=== PATIENT | male | born 1980 | race Caucasian/White ===

== ENCOUNTER 2019-12-08 17:28 | Inpatient (IN) | payer OTHER ==
[2019-12-08 19:22] VITALS: BMI 23.5
--- NOTE | 2019-12-08 20:02 | HP ---
CIWA Score Nausea/Vomitin-Mild Nausea/No Vomiting Muscle Tremors: 4-Moderate,w/Arms Extend Anxiety: 2 Agitation: 3 Paroxysmal Sweats: 2 Orientation: 0-Oriented Tacttile Disturbances: 0-None Auditory Disturbances: 0-None Visual Disturbances: 0-None Headache: 0-None Present CIWA-Ar Total Score: 12 - Admission Criteria OASAS Guidelines: Admission for Medically Managed Detox: Requires at least one of the followin. CIWA greater than 12 2. Seizures within the past 24 hours 3. Delirium tremens within the past 24 hours 4. Hallucinations within the past 24 hours 5. Acute intervention needed for co occurring medical disorder 6. Acute intervention needed for co occurring psychiatric disorder 7. Severe withdrawal that cannot be handled at a lower level of care (continued vomiting, continued diarrhea, abnormal vital signs) requiring intravenous medication and/or fluids 8. Admission [facility] Chief Complaint: Seeking admission to detox from alcohol Allergies/Adverse Reactions: Allergies Allergy/AdvReac Type Severity Reaction Status Date / Time No Known Allergies Allergy Verified 12/08/19 19:59 History of Present Illness: 39 years old male with a long history of alcohol dependence is seeking admission to detox. This is his first admission to [facility] and he reports that his last detox was at [facility]. Patient reports that he drinks 3 pints of Vodka daily. He denies medical history, reports psych. history of anxiety and denies suicidal ideation at this time. He is unemployed, lives with his father and denies legal issues. 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 Patient reports that he is on Methadone 20mg tablet oral daily with [facility]. Dose is yet to be verified by the nurse. Confidential Drug Utilization Report Search Terms: sarah purcell, 1980Search Date: 12/08/2019 19:55:45 PM The Drug Utilization Report below displays all of the controlled substance prescriptions, if any, that your patient has filled in the last twelve months. The information displayed on this report is compiled from pharmacy submissions to the Department, and accurately reflects the information as submitted by the pharmacies. Others' Prescriptions Patient Name: Basim PurcellBirth Date: 1980 Address: [place], [place] [address]Saj: Male Rx Written Rx Dispensed Drug Quantity Days Supply Prescriber Name Payment Method Dispenser 12/04/2019 12/04/2019 zolpidem tartrate 10 mg tablet 30 30 Alirio Hdez MD [facility] 12/04/2019 12/04/2019 clonazepam 2 mg tablet 90 30 Alirio Hdez MD [facility] 10/31/2019 11/01/2019 clonazepam 2 mg tablet 90 30 Alirio Hdez MD [facility] 10/31/2019 11/01/2019 zolpidem tartrate 10 mg tablet 30 30 Alirio Hdez MD [facility] 10/03/2019 10/06/2019 zolpidem tartrate 10 mg tablet 30 30 Alirio Hdez MD [facility] 10/03/2019 10/06/2019 clonazepam 2 mg tablet 90 30 Alirio Hdez MD [facility] 07/07/2019 07/11/2019 clonazepam 2 mg tablet 90 30 Alirio Hdez MD [facility] 05/12/2019 05/12/2019 clonazepam 2 mg tablet 90 30 Alirio Hdez MD [facility] 03/10/2019 03/10/2019 clonazepam 1 mg tablet 90 30 Alirio Hdez MD [facility] 02/19/2019 02/19/2019 clonazepam 1 mg tablet 46 15 Alirio Hdez MD [facility] Exam Limitations: No Limitations - Ebola screening Have you traveled outside of the country in the last 21 days: No Have you had contact with anyone from an Ebola affected area: No Have you been sick,other than usual withdrawal symptoms: No Do you have a fever: No - Review of Systems Constitutional: Chills, Loss of Appetite, Malaise, Night Sweats, Changes in sleep EENT: reports: No Symptoms Reported Respiratory: reports: No Symptoms reported Cardiac: reports: No Symptoms Reported GI: reports: No Symptoms Reported : reports: No Symptoms Reported Musculoskeletal: reports: Back Pain, Muscle Pain Integumentary: reports: Dryness, Flushing Neuro: reports: Tremors Endocrine: reports: No Symptoms Reported Hematology: reports: No Symptoms Reported Psychiatric: reports: Mood/Affect Appropiate, Orientated x3, Anxious Other Systems: Reviewed and Negative Patient History - Patient Medical History Hx Anemia: No Hx Asthma: No Hx Chronic Obstructive Pulmonary Disease (COPD): No Hx Cancer: No Hx Cardiac Disorders: No Hx Congestive Heart Failure: No Hx Hypertension: No Hx Hypercholesterolemia: No HX Cerebrovascular Accident: No Hx Seizures: No Hx Dementia: No Hx Diabetes: No Hx Gastrointestinal Disorders: No Hx Liver Disease: No Hx Genitourinary Disorders: No Hx Sexually Transmitted Disorders: No Hx Renal Disease (ESRD): No Hx Thyroid Disease: No Hx Human Immunodeficiency Virus (HIV): No (Negative 2019) Hx Hepatitis C: No Hx Depression: No Hx Suicide Attempt: No (Denies suicidal ideation at this time) Hx Bipolar Disorder: No Hx Schizophrenia: No Other Medical History: Anxiety - Patient Surgical History Past Surgical History: No - PPD History Previous Implant?: Yes Documented Results: Negative w/o proof Implanted On Prior [facility] Admission?: No PPD to be Administered?: Yes - Reproductive History Patient is a Female of Child Bearing Age (11 -55 yrs old): No (Male) - Smoking Cessation Smoking history: Current every day smoker Have you smoked in the past 12 months: Yes Aproximately how many cigarettes per day: 10 Hx Chewing Tobacco Use: No Initiated information on smoking cessation: Yes 'Breaking Loose' booklet given: 12/08/19 - Substance & Tx. History Hx Alcohol Use: Yes Hx Substance Use: Yes Substance Use Type: Alcohol, Heroin, Prescribed (methadone 20mg tablet oral daily with [facility]) - Substances abused Alcohol Substance route: Oral Frequency: Daily Amount used: 3 pints of Vodka Age of first use: 20 Date of last use: 12/08/19 Admission Physical Exam [facility] - Vital Signs Vital Signs: Vital Signs - 24 hr 12/08/19 19:13 Temperature 0 F L Pulse Rate 59 L Respiratory 20 Rate Blood Pressure 108/70 - Physical General Appearance: Yes: Moderate Distress, Tremorous, Anxious HEENTM: Yes: Within Normal Limits Respiratory: Yes: Lungs Clear, Normal Breath Sounds, No Respiratory Distress Neck: Yes: Within Normal Limits Breast: Yes: Breast Exam Deferred Cardiology: Yes: Bradycardia Abdominal: Yes: Normal Bowel Sounds Genitourinary: Yes: Within Normal Limits Back: Yes: Normal Inspection Musculoskeletal: Yes: Back pain, Muscle Pain Extremities: Yes: Tremors Neurological: Yes: Within Normal Limits Integumentary: Yes: Warm Lymphatic: Yes: Within Normal Limits - Diagnostic (1) Alcohol dependence with withdrawal, uncomplicated Current Visit: Yes Status: Acute (2) Nicotine dependence Current Visit: Yes Status: Chronic Qualifiers: Nicotine product type: cigarettes Substance use status: uncomplicated Qualified Code(s): F17.210 - Nicotine dependence, cigarettes, uncomplicated (3) Methadone maintenance therapy patient Current Visit: Yes Status: Chronic (4) Anxiety Current Visit: Yes Status: Chronic Cleared for Admission S - Detox or Rehab [facility] Level of Care: Medically Managed Detox Regimen/Protocol: Librium Claeared for Rehab Admission: No Breathalyzer - Breathalyzer Breathalyzer: 0 Urine Drug Screen - Test Device Lot number: [id number] Expiration date: 12/07/20 - Control Is test valid?: Yes - Results Drug screen NEGATIVE: No Urine drug screen results: FEN-Fentanyl, MOP-Opiates, MTD-Methadone, BZO- Benzodiazepines, BUP-Suboxone Inpatient Rehab Admission - Rehab Decision to Admit Inpatient rehab admission?: No
[2019-12-08] MEDS ORDERED: MAG HYDROX/AL HYDROX/SIMETH 30 ML UNIT-DOSE CUP PO PRN (20:18)
[2019-12-08] MEDS ORDERED: MAGNESIUM HYDROX 2400MG/30ML ORAL SUSPENSION 30 ML CUP PO PRN (20:18)
[2019-12-08] MEDS ORDERED: ACETAMINOPHEN 325 MG TABLET (FP) PO PRN ×2 (20:18)
[2019-12-08] MEDS ORDERED: BISMUTH SUBSALICYLATE 524 MG/30 ML UD PO PRN (20:18)
[2019-12-08] MEDS ORDERED: IBUPROFEN 400 MG TABLET (FP) PO PRN (20:18)
[2019-12-08] MEDS ORDERED: MAGNESIUM CITRATE 300 ML BOTTLE PO PRN (20:18)
[2019-12-08] MEDS ORDERED: NICOTINE POLACRILEX 2 MG GUM BUC PRN (20:18)
[2019-12-08] MEDS ORDERED: ONDANSETRON *ODT* 4 MG TABLET SL ONE (20:18)
[2019-12-08] MEDS ORDERED: MENTHOL/PHENOL 1 EACH UD MM PRN (20:18)
[2019-12-08] MEDS: THIAMINE HCL 100 MG TABLET (FP) PO SCH (23:14)
[2019-12-08] MEDS: hydrOXYzine PAMOATE 25 MG CAPSULE (FP) PO PRN (23:14)
[2019-12-08] MEDS: MELATONIN 5 MG TABLETS PO SCH (23:15)
[2019-12-08] MEDS: chlordiazePOXIDE HCL 25 MG CAPSULE PO SCH (23:15)
[2019-12-09] MEDS: chlordiazePOXIDE HCL 25 MG CAPSULE PO SCH ×3 (06:34→21:41)
[2019-12-09] MEDS ORDERED: METHADONE HCL 10 MG TABLET PO ONE (09:45)
[2019-12-09] MEDS: PRENATAL VITAMINS W/ FOLIC ACID TABLET (FP) PO SCH (10:05)
[2019-12-09] MEDS: METHOCARBAMOL 500 MG TABLET PO PRN ×2 (10:06→21:41)
[2019-12-09] MEDS: chlordiazePOXIDE HCL 10 MG CAPSULE PO PRN ×2 (10:07→17:40)
[2019-12-09] MEDS: NICOTINE 14 MG/24 HOURS TOPICAL PATCH TD SCH (10:07)
[2019-12-09 10:30] LABS: HEMATOCRIT 38.4 % (35.4-49); HEMOGLOBIN 12.8 GM/dL (11.7-16.9); MCH 29.9 pg (25.7-33.7); MCHC 33.4 g/dl (32.0-35.9); MEAN CELL VOLUME 89.3 fl (80-96); MEAN PLT VOLUME 11.2 fl (7.5-11.1); PLATELET COUNT 188 K/MM3 (134-434); RDW 13.6 % (11.9-15.9); WHITE BLOOD COUNT 6.7 K/mm3 (4.0-10.0)
--- NOTE | 2019-12-09 10:39 | EKG ---
Test Reason : Blood Pressure : / mmHG Vent. Rate : 045 BPM Atrial Rate : 045 BPM P-R Int : 138 ms QRS Dur : 092 ms QT Int : 456 ms P-R-T Axes : 015 029 013 degrees QTc Int : 394 ms SINUS BRADYCARDIA OTHERWISE NORMAL ECG NO PREVIOUS ECGS AVAILABLE Confirmed by Gal Lentz MD ([id number]) on 12/09/2019 10:38:38 AM Referred By: Confirmed By:Gal Lentz MD
[2019-12-09 10:41] LABS: ALBUMIN 3.6 g/dl (3.4-5.0); BILIRUBIN,TOTAL 0.4 mg/dL (0.2-1); BLOOD UREA NITROGEN 21.8 mg/dL (7-18); CALCIUM 9.1 mg/dL (8.5-10.1); TOT PROT 7.3 g/dl (6.4-8.2)
--- NOTE | 2019-12-09 14:25 | PN ---
S CIWA - CIWA Score Nausea/Vomitin-Mild Nausea/No Vomiting Muscle Tremors: 2 Anxiety: 3 Agitation: 1-Slight > Activity Paroxysmal Sweats: No Perspiration Orientation: 0-Oriented Tacttile Disturbances: 0-None Auditory Disturbances: 0-None Visual Disturbances: 1-Very Mild Sensitivity Headache: 1-Very Mild CIWA-Ar Total Score: 9 S Progress Note (SOAP) Subjective: 39 years old male was admitted on 12/08/19 for alcohol withdrawal sx management treating with librium detox regiment ate breakfast and lunch in room resting in bed bmi 23.5 continue ensure supplement Objective: 12/09/19 14:26 Vital Signs - 24 hr 12/08/19 12/08/19 12/08/19 19:13 21:43 21:52 Temperature 0 F L 97.8 F Pulse Rate 59 L 59 L Respiratory 20 20 Rate Blood Pressure 108/70 108/70 O2 Sat by Pulse 100 Oximetry (%) 12/08/19 12/09/19 12/09/19 22:28 06:22 08:52 Temperature 97.5 F L 97.1 F L 97.3 F L Pulse Rate 53 L 55 L 49 L Respiratory 18 18 18 Rate Blood Pressure 121/73 110/59 L 102/69 O2 Sat by Pulse 100 99 Oximetry (%) 12/09/19 12:35 Temperature 97.3 F L Pulse Rate 48 L Respiratory 18 Rate Blood Pressure 122/76 O2 Sat by Pulse 100 Oximetry (%) Laboratory Tests 12/09/19 12/09/19 12/09/19 08:15 08:15 08:15 WBC 6.7 RBC 4.30 Hgb 12.8 Hct 38.4 MCV 89.3 MCH 29.9 MCHC 33.4 RDW 13.6 Plt Count 188 MPV 11.2 H Sodium 143 Potassium 4.0 Chloride 107 Carbon Dioxide 31 Anion Gap 5 L BUN 21.8 H Creatinine 1.0 Est GFR (CKD-EPI)AfAm 110.94 Est GFR (CKD-EPI)NonAf 95.72 Random Glucose 95 Calcium 9.1 Total Bilirubin 0.4 AST 14 L ALT 24 Alkaline Phosphatase 117 Total Protein 7.3 Albumin 3.6 Syphilis Serology Non-reactive 12/09/19 14:26 covid pending Assessment: 12/09/19 14:27 alcohol withdrawal Plan: librium regiment
--- NOTE | 2019-12-09 14:31 | CONSULT ---
[facility] Psychiatric Consult - Data Date of interview: 12/09/19 Admission source: [facility] Identifying data: First visit to [facility] and admission to [address] [place] [address] for this 39 y/o male self-referred for detoxification treatment. CHRISTINA issues : alcohol, heroin, nicotine. Patient is single, no dependents, domiciled (lives with biological father), unemployed and supported by relatives. Substance Abuse History: Discussed with the patient. CHRISTINA profile as follows : Smoking history: Current every day smoker. Have you smoked in the past 12 months: Yes. Aproximately how many cigarettes per day: 10. Hx Chewing Tobacco Use: No. Initiated information on smoking cessation: Yes. 'Breaking Loose' booklet given: 12/08/19. - Substance & Tx. History. Hx Alcohol Use: Yes. Hx Substance Use: Yes. Substance Use Type: Alcohol, Heroin, Prescribed (methadone 20mg tablet oral daily with [facility]). - Substances abused. Alcohol. Substance route: Oral. Frequency: Daily. Amount used: 3 pints of Vodka. Age of first use: 20. Date of last use: 12/08/19. History of multiple CHRISTINA treatment failures. Medical History: Patient endorses good general health. Psychiatric History: Patient admits to history of multiple psychiatric hospitalizations ([facility] + [facility]). Diagnosed with Anxiety Disorder and prescribed clonazepam (private psychiatrist, Dr Tee Hdez in [place], [place]). Onset of psychiatric disturbances : age 36 (self- report). Patient denies history of suicide attempts. Currently on methadone maintenance (20 mg/day) at the [facility] in [facility]. Physical/Sexual Abuse/Trauma History: Patient denies. Additional Comment: Urine drug screen results: FEN-Fentanyl, MOP-Opiates, MTD- Methadone, BZO-Benzodiazepines, BUP-Suboxone. Noted. Mental Status Exam - Mental Status Exam Alert and Oriented to: Time, Place, Person Cognitive Function: Good Patient Appearance: Well Groomed Mood: Nervous, Irritable Affect: Mood Congruent, Constricted Patient Behavior: Inappropriate (medication-seeking : pressuring MD for clonazepam), Fatigued, Cooperative (supreficially cooperative) Speech Pattern: Clear Voice Loudness: Normal Thought Process: Goal Oriented Thought Disorder: Not Present Hallucinations: Denies Suicidal Ideation: Denies Homicidal Ideation: Denies Insight/Judgement: Poor Sleep: Fair Appetite: Good Gait/Station: Normal Psychiatric Findings - Problem List ([place] 1, 2,3) (1) Alcohol dependence with withdrawal, uncomplicated Current Visit: Yes Status: Acute (2) Opioid dependence on agonist therapy Current Visit: Yes Status: Chronic (3) Nicotine dependence Current Visit: Yes Status: Chronic Qualifiers: Nicotine product type: cigarettes Substance use status: uncomplicated Qualified Code(s): F17.210 - Nicotine dependence, cigarettes, uncomplicated (4) Substance induced mood disorder Current Visit: Yes Status: Chronic (5) History of anxiety disorder Current Visit: Yes Status: Chronic - Initial Treatment Plan Initial Treatment Plan: Psychoeducation. Sleep hygiene. Detoxification in progress. Motivational counseling. Observation.
[2019-12-09] MEDS ORDERED: MASKS NR ONE (17:39)
[2019-12-09] MEDS: THIAMINE HCL 100 MG TABLET (FP) PO SCH (21:41)
[2019-12-09] MEDS: MELATONIN 5 MG TABLETS PO SCH (21:41)
[2019-12-10] MEDS: chlordiazePOXIDE 5 MG CAPSULE PO SCH ×3 (05:40→22:21)
[2019-12-10] MEDS: METHADONE HCL 10 MG TABLET PO SCH (05:41)
[2019-12-10] MEDS: PRENATAL VITAMINS W/ FOLIC ACID TABLET (FP) PO SCH (10:20)
[2019-12-10] MEDS: NICOTINE 14 MG/24 HOURS TOPICAL PATCH TD SCH (10:21)
[2019-12-10] MEDS: chlordiazePOXIDE HCL 10 MG CAPSULE PO PRN ×2 (10:21→17:52)
[2019-12-10] MEDS: METHOCARBAMOL 500 MG TABLET PO PRN ×2 (10:22→22:25)
--- NOTE | 2019-12-10 14:24 | PN ---
S CIWA - CIWA Score Nausea/Vomitin-Mild Nausea/No Vomiting Muscle Tremors: 2 Anxiety: 2 Agitation: 2 Paroxysmal Sweats: No Perspiration Orientation: 0-Oriented Tacttile Disturbances: 1-Very Mild Itch/Numbness Auditory Disturbances: 0-None Visual Disturbances: 0-None Headache: 2-Mild CIWA-Ar Total Score: 10 S Progress Note (SOAP) Subjective: alert,irritable,anxious,interrupted sleep,aching pain Objective: 12/10/19 14:21 Vital Signs Temperature 97.3 F L 12/10/19 12:37 Pulse Rate 74 12/10/19 12:37 Respiratory Rate 18 12/10/19 12:37 Blood Pressure 121/95 12/10/19 12:37 O2 Sat by Pulse Oximetry (%) 98 12/10/19 06:17 12/10/19 14:22 Laboratory Last Values WBC 6.7 K/mm3 (4.0-10.0) 12/09/19 08:15 RBC 4.30 M/mm3 (4.00-5.60) 12/09/19 08:15 Hgb 12.8 GM/dL (11.7-16.9) 12/09/19 08:15 Hct 38.4 % (35.4-49) 12/09/19 08:15 MCV 89.3 fl (80-96) 12/09/19 08:15 MCH 29.9 pg (25.7-33.7) 12/09/19 08:15 MCHC 33.4 g/dl (32.0-35.9) 12/09/19 08:15 RDW 13.6 % (11.9-15.9) 12/09/19 08:15 Plt Count 188 K/MM3 (134-434) 12/09/19 08:15 MPV 11.2 fl (7.5-11.1) H 12/09/19 08:15 Sodium 143 mmol/L (136-145) 12/09/19 08:15 Potassium 4.0 mmol/L (3.5-5.1) 12/09/19 08:15 Chloride 107 mmol/L (98-107) 12/09/19 08:15 Carbon Dioxide 31 mmol/L (21-32) 12/09/19 08:15 Anion Gap 5 MMOL/L (8-16) L 12/09/19 08:15 BUN 21.8 mg/dL (7-18) H 12/09/19 08:15 Creatinine 1.0 mg/dL (0.55-1.3) 12/09/19 08:15 Est GFR (CKD-EPI)AfAm 110.94 12/09/19 08:15 Est GFR (CKD-EPI)NonAf 95.72 12/09/19 08:15 Random Glucose 95 mg/dL (74-106) 12/09/19 08:15 Calcium 9.1 mg/dL (8.5-10.1) 12/09/19 08:15 Total Bilirubin 0.4 mg/dL (0.2-1) 12/09/19 08:15 AST 14 U/L (15-37) L 12/09/19 08:15 ALT 24 U/L (13-61) 12/09/19 08:15 Alkaline Phosphatase 117 U/L (45-117) 12/09/19 08:15 Total Protein 7.3 g/dl (6.4-8.2) 12/09/19 08:15 Albumin 3.6 g/dl (3.4-5.0) 12/09/19 08:15 Syphilis Serology Non-reactive (NONREACTIVE) 12/09/19 08:15 COVID-19 ([facility]) Not detected (Not Detected) 12/08/19 21:50 Assessment: 12/10/19 14:22 withdrawal symptom Plan: continue detox librium regimen,bun 21.8,hydration,fluid,continue methadone maintenance 20 mgs/day,
[2019-12-10] MEDS: hydrOXYzine PAMOATE 25 MG CAPSULE (FP) PO PRN (14:59)
[2019-12-10] MEDS: THIAMINE HCL 100 MG TABLET (FP) PO SCH (22:21)
[2019-12-10] MEDS: MELATONIN 5 MG TABLETS PO SCH (22:22)
[2019-12-11] MEDS ORDERED: chlordiazePOXIDE HCL 10 MG CAPSULE PO PRN
[2019-12-11] MEDS: METHADONE HCL 10 MG TABLET PO SCH (05:11)
[2019-12-11] MEDS: chlordiazePOXIDE HCL 10 MG CAPSULE PO SCH ×2 (05:14→13:23)
[2019-12-11] MEDS: PRENATAL VITAMINS W/ FOLIC ACID TABLET (FP) PO SCH (10:10)
[2019-12-11] MEDS: NICOTINE 14 MG/24 HOURS TOPICAL PATCH TD SCH (10:10)
[2019-12-11] MEDS: METHOCARBAMOL 500 MG TABLET PO PRN ×2 (10:10→18:22)
[2019-12-11] MEDS: hydrOXYzine PAMOATE 25 MG CAPSULE (FP) PO PRN ×2 (10:11→18:22)
--- NOTE | 2019-12-11 11:23 | PN ---
S CIWA - CIWA Score Nausea/Vomitin-Mild Nausea/No Vomiting Muscle Tremors: 2 Anxiety: 2 Agitation: 1-Slight > Activity Paroxysmal Sweats: No Perspiration Orientation: 0-Oriented Tacttile Disturbances: 1-Very Mild Itch/Numbness Auditory Disturbances: 0-None Visual Disturbances: 0-None Headache: 1-Very Mild CIWA-Ar Total Score: 8 [facility] Progress Note (SOAP) Subjective: alert,irritable,anxious,interrupted sleep Objective: 12/11/19 11:22 Vital Signs Temperature 96.9 F L 12/11/19 08:29 Pulse Rate 45 L 12/11/19 08:29 Respiratory Rate 18 12/11/19 08:29 Blood Pressure 111/74 12/11/19 08:29 O2 Sat by Pulse Oximetry (%) 97 12/11/19 08:29 Assessment: withdrawal symptom 12/11/19 11:34 Plan: continue detox librium regimen,hydration,fluid,continue methadone 20 mgs /day,,discharge in am
[2019-12-11 18:16] VITALS: BP 113/68; PULSE 75; TEMP 98.6
--- NOTE | 2019-12-11 19:18 | DS ---
[facility] Detox Discharge Summary Admission Date: 12/08/19 Discharge Date: 12/11/19 - History Present History: Alcohol Dependence, Opioid Dependence Pertinent Past History: Pt admitted for alcohol detox. Pt is in a [facility] methadone program. Pt will follow up with them. Pt has no complaints today- but would like to leave. Vital Signs - 24 hr 12/10/19 12/11/19 12/11/19 20:26 06:29 08:29 Temperature 97.5 F L 97.1 F L 96.9 F L Pulse Rate 56 L 52 L 45 L Respiratory 18 16 18 Rate Blood Pressure 137/73 96/57 L 111/74 O2 Sat by Pulse 95 97 97 Oximetry (%) 12/11/19 12/11/19 12:38 17:43 Temperature 97.3 F L 98.6 F Pulse Rate 42 L 75 Respiratory 16 18 Rate Blood Pressure 111/69 113/68 O2 Sat by Pulse 96 Oximetry (%) Laboratory Tests 12/08/19 12/09/19 12/09/19 21:50 08:15 08:15 WBC 6.7 RBC 4.30 Hgb 12.8 Hct 38.4 MCV 89.3 MCH 29.9 MCHC 33.4 RDW 13.6 Plt Count 188 MPV 11.2 H Sodium Potassium Chloride Carbon Dioxide Anion Gap BUN Creatinine Est GFR (CKD-EPI)AfAm Est GFR (CKD-EPI)NonAf Random Glucose Calcium Total Bilirubin AST ALT Alkaline Phosphatase Total Protein Albumin Syphilis Serology Non-reactive COVID-19 ([place]) Not detected 12/09/19 08:15 WBC RBC Hgb Hct MCV MCH MCHC RDW Plt Count MPV Sodium 143 Potassium 4.0 Chloride 107 Carbon Dioxide 31 Anion Gap 5 L BUN 21.8 H Creatinine 1.0 Est GFR (CKD-EPI)AfAm 110.94 Est GFR (CKD-EPI)NonAf 95.72 Random Glucose 95 Calcium 9.1 Total Bilirubin 0.4 AST 14 L ALT 24 Alkaline Phosphatase 117 Total Protein 7.3 Albumin 3.6 Syphilis Serology COVID-19 ([place]) - Physical Exam Results Vital Signs: Vital Signs Temperature 98.6 F 12/11/19 17:43 Pulse Rate 75 12/11/19 17:43 Respiratory Rate 18 12/11/19 17:43 Blood Pressure 113/68 12/11/19 17:43 O2 Sat by Pulse Oximetry (%) 96 12/11/19 12:38 - Treatment Hospital Course: Detox Protocol Followed, Detoxed Safely, Responded well, Discharged Condition Good - Medication Discharge Medications: Ambulatory Orders Clonazepam [Klonopin] 2 mg PO TID 12/08/19
[2019-12-12] MEDS ORDERED: chlordiazePOXIDE HCL 10 MG CAPSULE PO ONE (05:00)
== END 2019-12-11 19:30 | disposition home or self-care (01) | DRG 773 ==
LOC: YASAS 17:28 → Y3N 21:33
PROVIDERS: ADMIT Allergy & Immunology; ATTEND Allergy & Immunology
PROC: HZ2ZZZZ Detoxification Services for Substance Abuse Treatment (ICD-10-PCS; principal; 2019-12-08)
DX: F10.230 Alcohol dependence with withdrawal, uncomplicated (principal); F11.20 Opioid dependence, uncomplicated; F17.210 Nicotine dependence, cigarettes, uncomplicated; F19.24 Other psychoactive substance dependence with psychoactive substance-induced mood disorder; F41.9 Anxiety disorder, unspecified; Z56.0 Unemployment, unspecified
CPT/HCPCS: 36415; 80053; 85027; 86780; 93005; 93010; U0003

== ENCOUNTER 2020-03-12 13:33 | Inpatient (IN) | payer OTHER ==
[2020-03-12 17:24] VITALS: BMI 24.9
[2020-03-12] MEDS ORDERED: hydrOXYzine PAMOATE 25 MG CAPSULE (FP) PO ONE ×2 (19:54→20:12)
[2020-03-12] MEDS ORDERED: MAG HYDROX/AL HYDROX/SIMETH 30 ML UNIT-DOSE CUP PO PRN (21:51)
[2020-03-12] MEDS ORDERED: MAGNESIUM CITRATE 300 ML BOTTLE PO PRN (21:51)
[2020-03-12] MEDS ORDERED: P-EPHED 60MG/TRIPROLIDI 2.5MG TABLET PO PRN (21:51)
[2020-03-12] MEDS ORDERED: LOPERAMIDE HCL 2 MG CAPSULE PO PRN (21:51)
[2020-03-12] MEDS ORDERED: ACETAMINOPHEN 325 MG TABLET (FP) PO PRN (21:51)
[2020-03-12] MEDS ORDERED: MAGNESIUM HYDROX 2400MG/30ML ORAL SUSPENSION 30 ML CUP PO PRN (21:51)
[2020-03-12] MEDS ORDERED: guaiFENesin 200 MG/10 ML 10 ML UNIT-DOSE CUPS PO PRN (21:51)
[2020-03-12] MEDS ORDERED: IBUPROFEN 400 MG TABLET (FP) PO PRN (21:51)
[2020-03-12] MEDS ORDERED: QUEtiapine FUMARATE 50 MG TABLET PO ONE (22:02)
[2020-03-12] MEDS ORDERED: AMMONIUM LACTATE 12% LOTION 225 GM BOTTLE TP PRN (22:17)
[2020-03-12] MEDS: THIAMINE HCL 100 MG TABLET (FP) PO SCH (22:25)
[2020-03-12] MEDS: MELATONIN 5 MG TABLETS PO SCH (22:26)
[2020-03-13] MEDS ORDERED: METHADONE HCL 10 MG TABLET PO SCH (07:30)
[2020-03-13] MEDS ORDERED: METHADONE HCL 40 MG DISPERSABLE TABLET ONE (07:34)
[2020-03-13] MEDS ORDERED: METHADONE HCL 10 MG TABLET ONE (07:34)
[2020-03-13] MEDS: METHADONE 40 MG, METHADONE 20 MG PO SCH (07:41)
[2020-03-13 09:30] LABS: HEMATOCRIT 42.8 % (35.4-49); HEMOGLOBIN 14.1 GM/dL (11.7-16.9); MEAN CELL VOLUME 87.8 fl (80-96); MEAN PLT VOLUME 11.8 fl (7.5-11.1); PLATELET COUNT 194 K/MM3 (134-434); RBC 4.87 M/mm3 (4.00-5.60); RDW 13.1 % (11.9-15.9)
[2020-03-13 09:31] LABS: URINE APPEARANCE CLEAR; URINE BILIRUBIN NEGATIVE (NEGATIVE); URINE COLOR YELLOW; URINE GLUCOSE (UA) NEGATIVE (NEGATIVE); URINE KETONE NEGATIVE (NEGATIVE); URINE LEUK ESTERASE NEGATIVE (NEGATIVE); URINE NITRITE NEGATIVE (NEGATIVE); URINE PROTEIN NEGATIVE (NEGATIVE); URINE UROBILINOGEN 0.2 mg/dL (0.2-1.0)
[2020-03-13 09:39] LABS: POTASSIUM 4.3 mmol/L (3.5-5.1)
[2020-03-13 10:07] LABS: BLOOD UREA NITROGEN 13.7 mg/dL (7-18)
[2020-03-13 10:08] LABS: ALBUMIN 4.1 g/dl (3.4-5.0)
[2020-03-13 10:12] LABS: BILIRUBIN,TOTAL 1.1 mg/dL (0.2-1)
[2020-03-13] MEDS: PRENATAL VITAMINS W/ FOLIC ACID TABLET (FP) PO SCH (10:57)
[2020-03-13] MEDS: NICOTINE 14 MG/24 HOURS TOPICAL PATCH TD SCH (10:58)
[2020-03-13] MEDS: PANTOPRAZOLE 20 MG TABLET PO SCH (10:59)
[2020-03-13] MEDS ORDERED: MASKS NR ONE (17:50)
[2020-03-13] MEDS: hydrOXYzine PAMOATE 25 MG CAPSULE (FP) PO PRN (20:21)
[2020-03-13] MEDS: MELATONIN 5 MG TABLETS PO SCH (21:37)
[2020-03-13] MEDS: THIAMINE HCL 100 MG TABLET (FP) PO SCH (21:37)
[2020-03-14] MEDS ORDERED: METHADONE HCL 40 MG DISPERSABLE TABLET ONE (05:39)
[2020-03-14] MEDS ORDERED: METHADONE HCL 10 MG TABLET ONE (05:39)
[2020-03-14] MEDS: METHADONE 40 MG, METHADONE 20 MG PO SCH (06:29)
[2020-03-14] MEDS: PANTOPRAZOLE 20 MG TABLET PO SCH (09:57)
[2020-03-14] MEDS: PRENATAL VITAMINS W/ FOLIC ACID TABLET (FP) PO SCH (09:57)
[2020-03-14] MEDS: hydrOXYzine PAMOATE 25 MG CAPSULE (FP) PO PRN ×3 (09:57→21:49)
[2020-03-14] MEDS: NICOTINE 14 MG/24 HOURS TOPICAL PATCH TD SCH (09:57)
[2020-03-14] MEDS: NICOTINE POLACRILEX 2 MG GUM BC PRN (10:32)
[2020-03-14] MEDS ORDERED: cloNIDine HCL 0.1 MG TABLET PO ONE (14:46)
[2020-03-14] MEDS ORDERED: MASKS NR ONE (19:14)
[2020-03-14] MEDS: cloNIDine HCL 0.1 MG TABLET PO SCH (21:48)
[2020-03-14] MEDS: THIAMINE HCL 100 MG TABLET (FP) PO SCH (21:49)
[2020-03-14] MEDS: MELATONIN 5 MG TABLETS PO SCH (21:49)
[2020-03-15] MEDS ORDERED: METHADONE HCL 40 MG DISPERSABLE TABLET ONE (05:10)
[2020-03-15] MEDS ORDERED: METHADONE HCL 10 MG TABLET ONE (05:10)
[2020-03-15] MEDS: METHADONE 40 MG, METHADONE 20 MG PO SCH (06:31)
[2020-03-15] MEDS: hydrOXYzine PAMOATE 25 MG CAPSULE (FP) PO PRN ×3 (06:32→17:06)
[2020-03-15] MEDS: cloNIDine HCL 0.1 MG TABLET PO SCH ×2 (09:04→21:32)
[2020-03-15] MEDS: NICOTINE 14 MG/24 HOURS TOPICAL PATCH TD SCH (09:04)
[2020-03-15] MEDS: PRENATAL VITAMINS W/ FOLIC ACID TABLET (FP) PO SCH (09:05)
[2020-03-15] MEDS: PANTOPRAZOLE 20 MG TABLET PO SCH (09:05)
[2020-03-15] MEDS ORDERED: cloNIDine HCL 0.1 MG TABLET PO ONE (10:47)
[2020-03-15] MEDS ORDERED: LORazepam 0.5 MG TABLET PO ONE (13:29)
[2020-03-15] MEDS: MELATONIN 5 MG TABLETS PO SCH (21:31)
[2020-03-15] MEDS: THIAMINE HCL 100 MG TABLET (FP) PO SCH (21:31)
[2020-03-16] MEDS ORDERED: METHADONE HCL 40 MG DISPERSABLE TABLET ONE (04:26)
[2020-03-16] MEDS ORDERED: METHADONE HCL 10 MG TABLET ONE (04:26)
[2020-03-16] MEDS: METHADONE 40 MG, METHADONE 20 MG PO SCH (06:00)
[2020-03-16] MEDS: cloNIDine HCL 0.1 MG TABLET PO SCH ×3 (06:00→21:09)
[2020-03-16] MEDS: PANTOPRAZOLE 20 MG TABLET PO SCH (10:32)
[2020-03-16] MEDS: NICOTINE 14 MG/24 HOURS TOPICAL PATCH TD SCH (10:32)
[2020-03-16] MEDS: PRENATAL VITAMINS W/ FOLIC ACID TABLET (FP) PO SCH (10:32)
[2020-03-16] MEDS: hydrOXYzine PAMOATE 25 MG CAPSULE (FP) PO PRN (10:32)
[2020-03-16] MEDS: THIAMINE HCL 100 MG TABLET (FP) PO SCH (21:09)
[2020-03-16] MEDS: MELATONIN 5 MG TABLETS PO SCH (21:09)
[2020-03-17] MEDS ORDERED: METHADONE HCL 40 MG DISPERSABLE TABLET ONE (05:18)
[2020-03-17] MEDS ORDERED: METHADONE HCL 10 MG TABLET ONE (05:19)
[2020-03-17] MEDS: cloNIDine HCL 0.1 MG TABLET PO SCH ×3 (06:16→21:51)
[2020-03-17] MEDS: METHADONE 40 MG, METHADONE 20 MG PO SCH (06:16)
[2020-03-17] MEDS: PRENATAL VITAMINS W/ FOLIC ACID TABLET (FP) PO SCH (10:28)
[2020-03-17] MEDS: NICOTINE 14 MG/24 HOURS TOPICAL PATCH TD SCH (10:28)
[2020-03-17] MEDS: PANTOPRAZOLE 20 MG TABLET PO SCH (10:28)
[2020-03-17] MEDS: hydrOXYzine PAMOATE 25 MG CAPSULE (FP) PO PRN ×2 (10:28→18:30)
[2020-03-17] MEDS: NICOTINE POLACRILEX 2 MG GUM BC PRN (10:30)
[2020-03-17] MEDS: THIAMINE HCL 100 MG TABLET (FP) PO SCH (21:52)
[2020-03-17] MEDS: MELATONIN 5 MG TABLETS PO SCH (21:52)
[2020-03-18] MEDS ORDERED: METHADONE HCL 40 MG DISPERSABLE TABLET ONE (05:09)
[2020-03-18] MEDS ORDERED: METHADONE HCL 10 MG TABLET ONE (05:09)
[2020-03-18] MEDS: METHADONE 40 MG, METHADONE 20 MG PO SCH (06:11)
[2020-03-18] MEDS: cloNIDine HCL 0.1 MG TABLET PO SCH ×3 (06:11→21:27)
[2020-03-18] MEDS: NICOTINE POLACRILEX 2 MG GUM BC PRN (07:59)
[2020-03-18] MEDS: NICOTINE 14 MG/24 HOURS TOPICAL PATCH TD SCH (10:12)
[2020-03-18] MEDS: PANTOPRAZOLE 20 MG TABLET PO SCH (10:12)
[2020-03-18] MEDS: hydrOXYzine PAMOATE 25 MG CAPSULE (FP) PO PRN ×2 (10:12→19:44)
[2020-03-18] MEDS: PRENATAL VITAMINS W/ FOLIC ACID TABLET (FP) PO SCH (10:12)
[2020-03-18] MEDS: THIAMINE HCL 100 MG TABLET (FP) PO SCH (21:27)
[2020-03-18] MEDS: QUEtiapine FUMARATE 50 MG TABLET PO SCH (21:27)
[2020-03-18] MEDS: MELATONIN 5 MG TABLETS PO SCH (21:27)
[2020-03-19] MEDS ORDERED: METHADONE HCL 40 MG DISPERSABLE TABLET ONE (05:28)
[2020-03-19] MEDS ORDERED: METHADONE HCL 10 MG TABLET ONE (05:28)
[2020-03-19] MEDS: METHADONE 40 MG, METHADONE 20 MG PO SCH (06:23)
[2020-03-19] MEDS: cloNIDine HCL 0.1 MG TABLET PO SCH ×3 (06:23→21:22)
[2020-03-19] MEDS: PANTOPRAZOLE 20 MG TABLET PO SCH (10:19)
[2020-03-19] MEDS: NICOTINE 14 MG/24 HOURS TOPICAL PATCH TD SCH (10:19)
[2020-03-19] MEDS: PRENATAL VITAMINS W/ FOLIC ACID TABLET (FP) PO SCH (10:19)
[2020-03-19] MEDS: hydrOXYzine PAMOATE 25 MG CAPSULE (FP) PO PRN ×2 (10:20→21:23)
[2020-03-19] MEDS: MELATONIN 5 MG TABLETS PO SCH (21:21)
[2020-03-19] MEDS: THIAMINE HCL 100 MG TABLET (FP) PO SCH (21:21)
[2020-03-19] MEDS: QUEtiapine FUMARATE 50 MG TABLET PO SCH (21:22)
[2020-03-20] MEDS ORDERED: METHADONE HCL 10 MG TABLET ONE (03:15)
[2020-03-20] MEDS ORDERED: METHADONE HCL 40 MG DISPERSABLE TABLET ONE (03:15)
[2020-03-20] MEDS: METHADONE 40 MG, METHADONE 20 MG PO SCH (06:12)
[2020-03-20] MEDS: cloNIDine HCL 0.1 MG TABLET PO SCH ×3 (06:12→21:32)
[2020-03-20] MEDS: NICOTINE 14 MG/24 HOURS TOPICAL PATCH TD SCH (10:01)
[2020-03-20] MEDS: PRENATAL VITAMINS W/ FOLIC ACID TABLET (FP) PO SCH (10:01)
[2020-03-20] MEDS: PANTOPRAZOLE 20 MG TABLET PO SCH (10:01)
[2020-03-20] MEDS: hydrOXYzine PAMOATE 25 MG CAPSULE (FP) PO PRN (10:02)
[2020-03-20] MEDS ORDERED: METHADONE 40 MG, METHADONE 20 MG PO ONE ×2 (10:15→10:30)
[2020-03-20] MEDS: THIAMINE HCL 100 MG TABLET (FP) PO SCH (21:31)
[2020-03-20] MEDS: MELATONIN 5 MG TABLETS PO SCH (21:31)
[2020-03-20] MEDS: QUEtiapine FUMARATE 50 MG TABLET PO SCH (21:32)
[2020-03-21] MEDS ORDERED: METHADONE HCL 40 MG DISPERSABLE TABLET ONE (05:55)
[2020-03-21] MEDS ORDERED: METHADONE HCL 10 MG TABLET ONE (05:55)
[2020-03-21] MEDS ORDERED: METHADONE 40 MG, METHADONE 20 MG PO ONE (06:00)
[2020-03-21] MEDS ORDERED: METHADONE HCL 10 MG TABLET PO SCH (06:00)
[2020-03-21] MEDS: cloNIDine HCL 0.1 MG TABLET PO SCH ×3 (06:37→21:33)
[2020-03-21] MEDS: NICOTINE 14 MG/24 HOURS TOPICAL PATCH TD SCH (09:40)
[2020-03-21] MEDS: PRENATAL VITAMINS W/ FOLIC ACID TABLET (FP) PO SCH (09:40)
[2020-03-21] MEDS: PANTOPRAZOLE 20 MG TABLET PO SCH (09:40)
[2020-03-21] MEDS: hydrOXYzine PAMOATE 25 MG CAPSULE (FP) PO PRN ×2 (09:41→21:34)
[2020-03-21] MEDS: THIAMINE HCL 100 MG TABLET (FP) PO SCH (21:33)
[2020-03-21] MEDS: QUEtiapine FUMARATE 50 MG TABLET PO SCH (21:33)
[2020-03-21] MEDS: MELATONIN 5 MG TABLETS PO SCH (21:33)
[2020-03-22] MEDS ORDERED: METHADONE HCL 40 MG DISPERSABLE TABLET ONE (04:58)
[2020-03-22] MEDS ORDERED: METHADONE HCL 10 MG TABLET ONE (04:59)
[2020-03-22] MEDS ORDERED: METHADONE HCL 10 MG TABLET PO SCH (06:00)
[2020-03-22] MEDS: cloNIDine HCL 0.1 MG TABLET PO SCH ×3 (06:32→21:31)
[2020-03-22] MEDS: METHADONE 40 MG, METHADONE 20 MG PO SCH (06:32)
[2020-03-22] MEDS: PRENATAL VITAMINS W/ FOLIC ACID TABLET (FP) PO SCH (10:26)
[2020-03-22] MEDS: PANTOPRAZOLE 20 MG TABLET PO SCH (10:26)
[2020-03-22] MEDS: NICOTINE 14 MG/24 HOURS TOPICAL PATCH TD SCH (10:26)
[2020-03-22] MEDS: hydrOXYzine PAMOATE 25 MG CAPSULE (FP) PO PRN (10:27)
[2020-03-22] MEDS: QUEtiapine FUMARATE 50 MG TABLET PO SCH (21:31)
[2020-03-22] MEDS: MELATONIN 5 MG TABLETS PO SCH (21:32)
[2020-03-22] MEDS: THIAMINE HCL 100 MG TABLET (FP) PO SCH (21:32)
[2020-03-23] MEDS ORDERED: METHADONE HCL 40 MG DISPERSABLE TABLET ONE (05:04)
[2020-03-23] MEDS ORDERED: METHADONE HCL 10 MG TABLET ONE (05:05)
[2020-03-23] MEDS: METHADONE 40 MG, METHADONE 20 MG PO SCH (06:46)
[2020-03-23] MEDS: cloNIDine HCL 0.1 MG TABLET PO SCH ×3 (06:46→21:15)
[2020-03-23] MEDS: NICOTINE 14 MG/24 HOURS TOPICAL PATCH TD SCH (10:47)
[2020-03-23] MEDS: PANTOPRAZOLE 20 MG TABLET PO SCH (10:47)
[2020-03-23] MEDS: PRENATAL VITAMINS W/ FOLIC ACID TABLET (FP) PO SCH (10:47)
[2020-03-23] MEDS: hydrOXYzine PAMOATE 25 MG CAPSULE (FP) PO PRN ×2 (10:48→17:44)
[2020-03-23] MEDS: NICOTINE POLACRILEX 2 MG GUM BC PRN (17:44)
[2020-03-23] MEDS: QUEtiapine FUMARATE 50 MG TABLET PO SCH (21:15)
[2020-03-23] MEDS: MELATONIN 5 MG TABLETS PO SCH (21:15)
[2020-03-23] MEDS: THIAMINE HCL 100 MG TABLET (FP) PO SCH (21:16)
[2020-03-24] MEDS ORDERED: METHADONE HCL 40 MG DISPERSABLE TABLET ONE (05:12)
[2020-03-24] MEDS ORDERED: METHADONE HCL 10 MG TABLET ONE (05:12)
[2020-03-24] MEDS: METHADONE 40 MG, METHADONE 20 MG PO SCH (06:44)
[2020-03-24] MEDS: cloNIDine HCL 0.1 MG TABLET PO SCH ×3 (06:44→21:05)
[2020-03-24] MEDS: NICOTINE 14 MG/24 HOURS TOPICAL PATCH TD SCH (10:39)
[2020-03-24] MEDS: PRENATAL VITAMINS W/ FOLIC ACID TABLET (FP) PO SCH (10:40)
[2020-03-24] MEDS: PANTOPRAZOLE 20 MG TABLET PO SCH (10:40)
[2020-03-24] MEDS: hydrOXYzine PAMOATE 25 MG CAPSULE (FP) PO PRN (10:41)
[2020-03-24] MEDS: QUEtiapine FUMARATE 50 MG TABLET PO SCH (21:05)
[2020-03-24] MEDS: MELATONIN 5 MG TABLETS PO SCH (21:05)
[2020-03-24] MEDS: THIAMINE HCL 100 MG TABLET (FP) PO SCH (21:23)
[2020-03-25] MEDS ORDERED: METHADONE HCL 10 MG TABLET ONE (04:52)
[2020-03-25] MEDS ORDERED: METHADONE HCL 40 MG DISPERSABLE TABLET ONE (04:52)
[2020-03-25] MEDS: METHADONE 40 MG, METHADONE 20 MG PO SCH (06:34)
[2020-03-25] MEDS: cloNIDine HCL 0.1 MG TABLET PO SCH ×3 (06:34→21:16)
[2020-03-25] MEDS: hydrOXYzine PAMOATE 25 MG CAPSULE (FP) PO PRN (10:08)
[2020-03-25] MEDS: PRENATAL VITAMINS W/ FOLIC ACID TABLET (FP) PO SCH (10:08)
[2020-03-25] MEDS: PANTOPRAZOLE 20 MG TABLET PO SCH (10:08)
[2020-03-25] MEDS: NICOTINE 14 MG/24 HOURS TOPICAL PATCH TD SCH (10:08)
[2020-03-25] MEDS: MELATONIN 5 MG TABLETS PO SCH (21:16)
[2020-03-25] MEDS: QUEtiapine FUMARATE 50 MG TABLET PO SCH (21:16)
[2020-03-25] MEDS: THIAMINE HCL 100 MG TABLET (FP) PO SCH (21:16)
[2020-03-26] MEDS ORDERED: METHADONE HCL 10 MG TABLET ONE (05:34)
[2020-03-26] MEDS ORDERED: METHADONE HCL 40 MG DISPERSABLE TABLET ONE (05:34)
[2020-03-26] MEDS: METHADONE 40 MG, METHADONE 20 MG PO SCH (05:46)
[2020-03-26] MEDS: cloNIDine HCL 0.1 MG TABLET PO SCH ×3 (05:46→21:19)
[2020-03-26] MEDS: PRENATAL VITAMINS W/ FOLIC ACID TABLET (FP) PO SCH (10:17)
[2020-03-26] MEDS: hydrOXYzine PAMOATE 25 MG CAPSULE (FP) PO PRN (10:17)
[2020-03-26] MEDS: NICOTINE 14 MG/24 HOURS TOPICAL PATCH TD SCH (10:17)
[2020-03-26] MEDS: PANTOPRAZOLE 20 MG TABLET PO SCH (10:17)
[2020-03-26] MEDS: NICOTINE POLACRILEX 2 MG GUM BC PRN (10:17)
[2020-03-26] MEDS: MELATONIN 5 MG TABLETS PO SCH (21:19)
[2020-03-26] MEDS: QUEtiapine FUMARATE 50 MG TABLET PO SCH (21:19)
[2020-03-26] MEDS: THIAMINE HCL 100 MG TABLET (FP) PO SCH (21:20)
[2020-03-27] MEDS ORDERED: METHADONE HCL 40 MG DISPERSABLE TABLET ONE (05:40)
[2020-03-27] MEDS ORDERED: METHADONE HCL 10 MG TABLET ONE (05:40)
[2020-03-27] MEDS: cloNIDine HCL 0.1 MG TABLET PO SCH ×3 (06:31→21:19)
[2020-03-27] MEDS: METHADONE 40 MG, METHADONE 20 MG PO SCH (06:31)
[2020-03-27] MEDS: PANTOPRAZOLE 20 MG TABLET PO SCH (10:16)
[2020-03-27] MEDS: NICOTINE 14 MG/24 HOURS TOPICAL PATCH TD SCH ×2 (10:16→10:17)
[2020-03-27] MEDS: PRENATAL VITAMINS W/ FOLIC ACID TABLET (FP) PO SCH (10:16)
[2020-03-27] MEDS: hydrOXYzine PAMOATE 25 MG CAPSULE (FP) PO PRN (10:16)
[2020-03-27] MEDS: MELATONIN 5 MG TABLETS PO SCH (21:19)
[2020-03-27] MEDS: QUEtiapine FUMARATE 50 MG TABLET PO SCH (21:19)
[2020-03-27] MEDS: THIAMINE HCL 100 MG TABLET (FP) PO SCH (21:20)
[2020-03-28] MEDS ORDERED: METHADONE HCL 10 MG TABLET ONE (05:38)
[2020-03-28] MEDS ORDERED: METHADONE HCL 40 MG DISPERSABLE TABLET ONE (05:38)
[2020-03-28] MEDS ORDERED: METHADONE HCL 10 MG TABLET PO SCH (06:00)
[2020-03-28] MEDS: METHADONE 40 MG, METHADONE 20 MG PO SCH (06:15)
[2020-03-28] MEDS: cloNIDine HCL 0.1 MG TABLET PO SCH ×3 (06:15→21:33)
[2020-03-28] MEDS: PANTOPRAZOLE 20 MG TABLET PO SCH (10:09)
[2020-03-28] MEDS: NICOTINE 14 MG/24 HOURS TOPICAL PATCH TD SCH (10:09)
[2020-03-28] MEDS: PRENATAL VITAMINS W/ FOLIC ACID TABLET (FP) PO SCH (10:09)
[2020-03-28] MEDS: hydrOXYzine PAMOATE 25 MG CAPSULE (FP) PO PRN (10:09)
[2020-03-28] MEDS: MELATONIN 5 MG TABLETS PO SCH (21:33)
[2020-03-28] MEDS: QUEtiapine FUMARATE 50 MG TABLET PO SCH (21:33)
[2020-03-28] MEDS: THIAMINE HCL 100 MG TABLET (FP) PO SCH (21:34)
[2020-03-29] MEDS ORDERED: METHADONE HCL 40 MG DISPERSABLE TABLET ONE (03:07)
[2020-03-29] MEDS ORDERED: METHADONE HCL 10 MG TABLET ONE (03:07)
[2020-03-29] MEDS: METHADONE 40 MG, METHADONE 20 MG PO SCH (06:53)
[2020-03-29] MEDS: cloNIDine HCL 0.1 MG TABLET PO SCH ×3 (06:54→21:07)
[2020-03-29] MEDS: PANTOPRAZOLE 20 MG TABLET PO SCH (09:57)
[2020-03-29] MEDS: hydrOXYzine PAMOATE 25 MG CAPSULE (FP) PO PRN (09:57)
[2020-03-29] MEDS: NICOTINE 14 MG/24 HOURS TOPICAL PATCH TD SCH (09:57)
[2020-03-29] MEDS: PRENATAL VITAMINS W/ FOLIC ACID TABLET (FP) PO SCH (09:57)
[2020-03-29] MEDS: QUEtiapine FUMARATE 50 MG TABLET PO SCH (21:07)
[2020-03-29] MEDS: MELATONIN 5 MG TABLETS PO SCH (21:07)
[2020-03-29] MEDS: THIAMINE HCL 100 MG TABLET (FP) PO SCH (21:07)
[2020-03-30] MEDS ORDERED: METHADONE HCL 10 MG TABLET ONE (03:35)
[2020-03-30] MEDS ORDERED: METHADONE HCL 40 MG DISPERSABLE TABLET ONE (03:35)
[2020-03-30] MEDS: cloNIDine HCL 0.1 MG TABLET PO SCH ×3 (06:28→21:21)
[2020-03-30] MEDS: METHADONE 40 MG, METHADONE 20 MG PO SCH (06:28)
[2020-03-30] MEDS: NICOTINE 14 MG/24 HOURS TOPICAL PATCH TD SCH (09:39)
[2020-03-30] MEDS: hydrOXYzine PAMOATE 25 MG CAPSULE (FP) PO PRN (09:39)
[2020-03-30] MEDS: PANTOPRAZOLE 20 MG TABLET PO SCH (09:39)
[2020-03-30] MEDS: PRENATAL VITAMINS W/ FOLIC ACID TABLET (FP) PO SCH (09:39)
[2020-03-30] MEDS: MELATONIN 5 MG TABLETS PO SCH (21:21)
[2020-03-30] MEDS: QUEtiapine FUMARATE 50 MG TABLET PO SCH (21:21)
[2020-03-30] MEDS: THIAMINE HCL 100 MG TABLET (FP) PO SCH (21:22)
[2020-03-31] MEDS ORDERED: METHADONE HCL 40 MG DISPERSABLE TABLET ONE (06:03)
[2020-03-31] MEDS: cloNIDine HCL 0.1 MG TABLET PO SCH ×3 (06:03→21:16)
[2020-03-31] MEDS ORDERED: METHADONE HCL 10 MG TABLET ONE (06:04)
[2020-03-31] MEDS: METHADONE 40 MG, METHADONE 20 MG PO SCH (06:04)
[2020-03-31] MEDS: PANTOPRAZOLE 20 MG TABLET PO SCH (09:53)
[2020-03-31] MEDS: PRENATAL VITAMINS W/ FOLIC ACID TABLET (FP) PO SCH (09:53)
[2020-03-31] MEDS: hydrOXYzine PAMOATE 25 MG CAPSULE (FP) PO PRN (09:53)
[2020-03-31] MEDS: NICOTINE 14 MG/24 HOURS TOPICAL PATCH TD SCH (09:54)
[2020-03-31] MEDS: QUEtiapine FUMARATE 50 MG TABLET PO SCH (21:16)
[2020-03-31] MEDS: THIAMINE HCL 100 MG TABLET (FP) PO SCH (21:16)
[2020-03-31] MEDS: MELATONIN 5 MG TABLETS PO SCH (21:16)
[2020-04-01] MEDS ORDERED: METHADONE HCL 40 MG DISPERSABLE TABLET ONE (03:22)
[2020-04-01] MEDS ORDERED: METHADONE HCL 10 MG TABLET ONE (03:23)
[2020-04-01] MEDS: cloNIDine HCL 0.1 MG TABLET PO SCH ×3 (06:24→21:40)
[2020-04-01] MEDS: METHADONE 40 MG, METHADONE 20 MG PO SCH (06:24)
[2020-04-01] MEDS: NICOTINE 14 MG/24 HOURS TOPICAL PATCH TD SCH (09:54)
[2020-04-01] MEDS: hydrOXYzine PAMOATE 25 MG CAPSULE (FP) PO PRN (09:54)
[2020-04-01] MEDS: PANTOPRAZOLE 20 MG TABLET PO SCH (09:54)
[2020-04-01] MEDS: PRENATAL VITAMINS W/ FOLIC ACID TABLET (FP) PO SCH (09:54)
[2020-04-01] MEDS: QUEtiapine FUMARATE 50 MG TABLET PO SCH (21:40)
[2020-04-01] MEDS: MELATONIN 5 MG TABLETS PO SCH (21:40)
[2020-04-01] MEDS: THIAMINE HCL 100 MG TABLET (FP) PO SCH (21:41)
[2020-04-02] MEDS ORDERED: METHADONE HCL 10 MG TABLET ONE (03:53)
[2020-04-02] MEDS ORDERED: METHADONE HCL 40 MG DISPERSABLE TABLET ONE (03:53)
[2020-04-02] MEDS: cloNIDine HCL 0.1 MG TABLET PO SCH ×3 (06:05→21:07)
[2020-04-02] MEDS: METHADONE 40 MG, METHADONE 20 MG PO SCH (06:05)
[2020-04-02] MEDS: PRENATAL VITAMINS W/ FOLIC ACID TABLET (FP) PO SCH (09:50)
[2020-04-02] MEDS: NICOTINE 14 MG/24 HOURS TOPICAL PATCH TD SCH (09:50)
[2020-04-02] MEDS: PANTOPRAZOLE 20 MG TABLET PO SCH (09:50)
[2020-04-02] MEDS: hydrOXYzine PAMOATE 25 MG CAPSULE (FP) PO PRN (09:51)
[2020-04-02] MEDS: MELATONIN 5 MG TABLETS PO SCH (21:06)
[2020-04-02] MEDS: QUEtiapine FUMARATE 50 MG TABLET PO SCH (21:06)
[2020-04-02] MEDS: THIAMINE HCL 100 MG TABLET (FP) PO SCH (21:07)
[2020-04-03] MEDS ORDERED: METHADONE HCL 40 MG DISPERSABLE TABLET ONE (05:47)
[2020-04-03] MEDS ORDERED: METHADONE HCL 10 MG TABLET ONE (05:47)
[2020-04-03] MEDS: METHADONE 40 MG, METHADONE 20 MG PO SCH (06:36)
[2020-04-03] MEDS: cloNIDine HCL 0.1 MG TABLET PO SCH ×3 (06:36→21:30)
[2020-04-03] MEDS: PRENATAL VITAMINS W/ FOLIC ACID TABLET (FP) PO SCH (10:09)
[2020-04-03] MEDS: PANTOPRAZOLE 20 MG TABLET PO SCH (10:09)
[2020-04-03] MEDS: NICOTINE 14 MG/24 HOURS TOPICAL PATCH TD SCH (10:09)
[2020-04-03] MEDS: hydrOXYzine PAMOATE 25 MG CAPSULE (FP) PO PRN (10:10)
[2020-04-03] MEDS: MELATONIN 5 MG TABLETS PO SCH (21:30)
[2020-04-03] MEDS: QUEtiapine FUMARATE 50 MG TABLET PO SCH (21:30)
[2020-04-03] MEDS: THIAMINE HCL 100 MG TABLET (FP) PO SCH (21:57)
[2020-04-04] MEDS ORDERED: METHADONE HCL 10 MG TABLET ONE (03:50)
[2020-04-04] MEDS ORDERED: METHADONE HCL 40 MG DISPERSABLE TABLET ONE (03:50)
[2020-04-04] MEDS: cloNIDine HCL 0.1 MG TABLET PO SCH ×3 (06:10→21:11)
[2020-04-04] MEDS: METHADONE 40 MG, METHADONE 20 MG PO SCH (06:10)
[2020-04-04] MEDS: NICOTINE 14 MG/24 HOURS TOPICAL PATCH TD SCH (09:46)
[2020-04-04] MEDS: PANTOPRAZOLE 20 MG TABLET PO SCH (09:46)
[2020-04-04] MEDS: PRENATAL VITAMINS W/ FOLIC ACID TABLET (FP) PO SCH (09:46)
[2020-04-04] MEDS: hydrOXYzine PAMOATE 25 MG CAPSULE (FP) PO PRN (09:47)
[2020-04-04] MEDS: THIAMINE HCL 100 MG TABLET (FP) PO SCH (21:11)
[2020-04-04] MEDS: QUEtiapine FUMARATE 50 MG TABLET PO SCH (21:11)
[2020-04-04] MEDS: MELATONIN 5 MG TABLETS PO SCH (21:11)
[2020-04-05] MEDS ORDERED: METHADONE HCL 40 MG DISPERSABLE TABLET ONE (04:52)
[2020-04-05] MEDS ORDERED: METHADONE HCL 10 MG TABLET ONE (04:53)
[2020-04-05] MEDS: METHADONE 40 MG, METHADONE 20 MG PO SCH (06:34)
[2020-04-05] MEDS: cloNIDine HCL 0.1 MG TABLET PO SCH (06:36)
[2020-04-05 08:44] VITALS: BP 123/75; PULSE 61; TEMP 97.2
== END 2020-04-05 09:36 | disposition home or self-care (01) | DRG 772 ==
LOC: YASAS 13:33 → Y3W 21:50
PROVIDERS: ADMIT Allergy & Immunology; ATTEND Allergy & Immunology
PROC: HZ42ZZZ Group Counseling for Substance Abuse Treatment, Cognitive-Behavioral (ICD-10-PCS; principal; 2020-03-12)
DX: F13.230 Sedative, hypnotic or anxiolytic dependence with withdrawal, uncomplicated (principal); F11.20 Opioid dependence, uncomplicated; F10.21 Alcohol dependence, in remission; G47.00 Insomnia, unspecified; F17.210 Nicotine dependence, cigarettes, uncomplicated; F19.24 Other psychoactive substance dependence with psychoactive substance-induced mood disorder
CPT/HCPCS: 36415; 71046-TC-FY; 80053; 81003; 85027; 86780; C9803; J0735; U0003

== ENCOUNTER 2021-06-10 10:52 | Inpatient (IN) | payer OTHER ==
[2021-06-10] MEDS ORDERED: MENTHOL/PHENOL 1 EACH UD MM PRN (12:10)
[2021-06-10] MEDS ORDERED: NALOXONE (NARCAN) HCL 4 MG/0.1 ML SPRAY NS PRN (12:10)
[2021-06-10] MEDS ORDERED: IBUPROFEN 400 MG TABLET (FP) PO PRN (12:10)
[2021-06-10] MEDS ORDERED: BISMUTH SUBSALICYLATE 524 MG/30 ML PO PRN (12:10)
[2021-06-10] MEDS ORDERED: ACETAMINOPHEN 325 MG TABLET (FP) PO PRN ×2 (12:10)
[2021-06-10] MEDS ORDERED: MAG HYDROX/AL HYDROX/SIMETH 30 ML UNIT-DOSE CUP PO PRN (12:10)
[2021-06-10] MEDS ORDERED: ONDANSETRON *ODT* 4 MG TABLET SL PRN (12:10)
[2021-06-10] MEDS ORDERED: LOPERAMIDE HCL 2 MG CAPSULE PO PRN (12:10)
[2021-06-10] MEDS ORDERED: MAGNESIUM CITRATE 300 ML BOTTLE PO PRN (12:10)
[2021-06-10] MEDS ORDERED: MAGNESIUM HYDROX 2400MG/30ML ORAL SUSPENSION 30 ML CUP PO PRN (12:10)
[2021-06-10 12:15] VITALS: BMI 23.3
[2021-06-10] MEDS: hydrOXYzine PAMOATE 25 MG CAPSULE (FP) PO SCH ×4 (13:05→22:33)
[2021-06-10] MEDS: METHOCARBAMOL 500 MG TABLET PO PRN (17:40)
[2021-06-10] MEDS: THIAMINE HCL 100 MG TABLET (FP) PO SCH (22:33)
[2021-06-10] MEDS: MELATONIN 5 MG TABLETS PO SCH (22:33)
[2021-06-11] MEDS: hydrOXYzine PAMOATE 25 MG CAPSULE (FP) PO SCH ×5 (07:17→21:31)
[2021-06-11] MEDS ORDERED: methaDONE HCL 10 MG TABLET PO SCH (10:00)
[2021-06-11] MEDS ORDERED: methaDONE HCL 40 MG DISPERSABLE TABLET ONE (10:48)
[2021-06-11] MEDS: PRENATAL VITAMINS W/ FOLIC ACID TABLET (FP) PO SCH (10:50)
[2021-06-11] MEDS: diazePAM 5 MG TABLET PO SCH ×3 (10:51→23:08)
[2021-06-11 12:36] LABS: CALCIUM 9.3 mg/dL (8.5-10.1)
[2021-06-11 12:37] LABS: BLOOD UREA NITROGEN 16.1 mg/dL (7-18)
[2021-06-11 12:38] LABS: ALBUMIN 3.3 g/dl (3.4-5.0)
[2021-06-11 12:39] LABS: HEMATOCRIT 36.5 % (35.4-49); HEMOGLOBIN 12.4 GM/dL (11.7-16.9); MCH 28.8 pg (25.7-33.7); MCHC 34.1 g/dl (32.0-35.9); MEAN CELL VOLUME 84.7 fl (80-96); MEAN PLT VOLUME 9.9 fl (7.5-11.1); PLATELET COUNT 220 10^3/uL (134-434); RBC 4.31 M/mm3 (4.00-5.60); RDW 13.8 % (11.9-15.9); WHITE BLOOD COUNT 6.4 K/mm3 (4.0-10.0)
[2021-06-11 12:41] LABS: BILIRUBIN,TOTAL 0.3 mg/dL (0.2-1); TOT PROT 7.2 g/dl (6.4-8.2)
[2021-06-11] MEDS: diazePAM 5 MG TABLET PO PRN ×2 (14:10→21:31)
[2021-06-11] MEDS: THIAMINE HCL 100 MG TABLET (FP) PO SCH (21:31)
[2021-06-11] MEDS: MELATONIN 5 MG TABLETS PO SCH (21:31)
[2021-06-12] MEDS ORDERED: methaDONE HCL 40 MG DISPERSABLE TABLET ONE (04:43)
[2021-06-12] MEDS: diazePAM 5 MG TABLET PO SCH ×3 (05:46→22:07)
[2021-06-12] MEDS: hydrOXYzine PAMOATE 25 MG CAPSULE (FP) PO SCH ×5 (06:43→22:07)
[2021-06-12] MEDS: diazePAM 5 MG TABLET PO PRN ×4 (08:05→20:41)
[2021-06-12] MEDS: PRENATAL VITAMINS W/ FOLIC ACID TABLET (FP) PO SCH (10:12)
[2021-06-12] MEDS: NICOTINE 10 MG CARTRIDGE (INHALER) IH PRN ×2 (10:59→16:39)
[2021-06-12] MEDS: MELATONIN 5 MG TABLETS PO SCH (22:07)
[2021-06-12] MEDS: THIAMINE HCL 100 MG TABLET (FP) PO SCH (22:07)
[2021-06-12] MEDS: METHOCARBAMOL 500 MG TABLET PO PRN (22:08)
[2021-06-13 00:08] LABS: SARS-CoV-2 NAA Not Detected (Not Detected)
[2021-06-13] MEDS ORDERED: methaDONE HCL 40 MG DISPERSABLE TABLET ONE ×2 (04:27→06:19)
[2021-06-13] MEDS: diazePAM 5 MG TABLET PO SCH ×2 (06:21→17:33)
[2021-06-13] MEDS: hydrOXYzine PAMOATE 25 MG CAPSULE (FP) PO SCH ×5 (06:22→22:14)
[2021-06-13] MEDS: diazePAM 5 MG TABLET PO PRN ×4 (08:54→23:14)
[2021-06-13] MEDS: PRENATAL VITAMINS W/ FOLIC ACID TABLET (FP) PO SCH (10:10)
[2021-06-13] MEDS: BACITRACIN 0.9 GM PACKET TP SCH (10:10)
[2021-06-13] MEDS: NICOTINE 10 MG CARTRIDGE (INHALER) IH PRN (16:40)
[2021-06-13] MEDS ORDERED: QUEtiapine FUMARATE 100 MG TABLET (FP) PO SCH (22:00)
[2021-06-13] MEDS: THIAMINE HCL 100 MG TABLET (FP) PO SCH (22:14)
[2021-06-13] MEDS: MELATONIN 5 MG TABLETS PO SCH (22:14)
[2021-06-13] MEDS: METHOCARBAMOL 500 MG TABLET PO PRN (22:15)
[2021-06-14] MEDS ORDERED: methaDONE HCL 40 MG DISPERSABLE TABLET ONE (04:43)
[2021-06-14] MEDS ORDERED: diazePAM 5 MG TABLET PO ONE (06:00)
[2021-06-14] MEDS: hydrOXYzine PAMOATE 25 MG CAPSULE (FP) PO SCH ×2 (06:20→10:54)
[2021-06-14] MEDS ORDERED: HYDROCORTISONE 1% TOPICAL OINT 30 GM TUBE TP SCH (10:30)
[2021-06-14] MEDS: BACITRACIN 0.9 GM PACKET TP SCH (10:54)
[2021-06-14] MEDS: PRENATAL VITAMINS W/ FOLIC ACID TABLET (FP) PO SCH (10:54)
[2021-06-14 12:52] VITALS: BP 103/60; PULSE 73; TEMP 97.1
== END 2021-06-14 12:46 | disposition other institution (70) | DRG 773 ==
LOC: YASAS 10:52 → Y3N 12:00
PROVIDERS: ADMIT Allergy & Immunology; ATTEND Allergy & Immunology
PROC: HZ2ZZZZ Detoxification Services for Substance Abuse Treatment (ICD-10-PCS; principal; 2021-06-10)
DX: F10.230 Alcohol dependence with withdrawal, uncomplicated (principal); F10.220 Alcohol dependence with intoxication, uncomplicated; F11.20 Opioid dependence, uncomplicated; F13.20 Sedative, hypnotic or anxiolytic dependence, uncomplicated; F14.10 Cocaine abuse, uncomplicated; F17.210 Nicotine dependence, cigarettes, uncomplicated; F19.24 Other psychoactive substance dependence with psychoactive substance-induced mood disorder; K21.9 Gastro-esophageal reflux disease without esophagitis; G47.00 Insomnia, unspecified; Z56.0 Unemployment, unspecified
CPT/HCPCS: 36415; 80053; 85027; 86780; 93005; 93010; C9803; U0003; U0005

== ENCOUNTER 2021-06-14 12:49 | Inpatient (IN) | payer OTHER ==
[2021-06-14] MEDS ORDERED: IBUPROFEN 400 MG TABLET (FP) PO PRN (13:53)
[2021-06-14] MEDS ORDERED: P-EPHED 60MG/TRIPROLIDI 2.5MG TABLET PO PRN (13:53)
[2021-06-14] MEDS ORDERED: MAG HYDROX/AL HYDROX/SIMETH 30 ML UNIT-DOSE CUP PO PRN (13:53)
[2021-06-14] MEDS ORDERED: MAGNESIUM HYDROX 2400MG/30ML ORAL SUSPENSION 30 ML CUP PO PRN (13:53)
[2021-06-14] MEDS ORDERED: LOPERAMIDE HCL 2 MG CAPSULE PO PRN (13:53)
[2021-06-14] MEDS ORDERED: ACETAMINOPHEN 325 MG TABLET (FP) PO PRN (13:53)
[2021-06-14] MEDS ORDERED: guaiFENesin 200 MG/10 ML 10 ML UNIT-DOSE CUPS PO PRN (13:53)
[2021-06-14] MEDS ORDERED: MELATONIN 5 MG TABLETS PO PRN (13:53)
[2021-06-14] MEDS ORDERED: MENTHOL/PHENOL 1 EACH UD MM PRN (13:53)
[2021-06-14] MEDS ORDERED: MAGNESIUM CITRATE 300 ML BOTTLE PO PRN (13:53)
[2021-06-14] MEDS: BACITRACIN 0.9 GM PACKET TP SCH ×2 (14:30→21:06)
[2021-06-14] MEDS: THIAMINE HCL 100 MG TABLET (FP) PO SCH (21:06)
[2021-06-14] MEDS ORDERED: QUEtiapine FUMARATE 100 MG TABLET (FP) PO ONE (22:00)
[2021-06-15] MEDS ORDERED: methaDONE HCL 40 MG DISPERSABLE TABLET PO SCH (06:00)
[2021-06-15] MEDS ORDERED: methaDONE HCL 40 MG DISPERSABLE TABLET ONE (06:30)
[2021-06-15] MEDS: BACITRACIN 0.9 GM PACKET TP SCH ×2 (10:06→21:06)
[2021-06-15] MEDS: PRENATAL VITAMINS W/ FOLIC ACID TABLET (FP) PO SCH (10:06)
[2021-06-15] MEDS: VENLAFAXINE HCL 37.5 MG E.R. CAPSULE PO SCH (10:28)
[2021-06-15] MEDS ORDERED: hydrOXYzine PAMOATE 25 MG CAPSULE (FP) PO PRN (10:42)
[2021-06-15] MEDS ORDERED: cloNIDine HCL 0.1 MG TABLET PO ONE (10:43)
[2021-06-15] MEDS ORDERED: NICOTINE POLACRILEX 2 MG GUM BUC PRN (12:12)
[2021-06-15] MEDS ORDERED: NICOTINE 10 MG CARTRIDGE (INHALER) IH SCH (12:15)
[2021-06-15] MEDS ORDERED: NICOTINE 10 MG CARTRIDGE (INHALER) IH PRN (12:26)
[2021-06-15] MEDS: busPIRone HCL 5 MG TABLET PO SCH ×2 (13:29→21:06)
[2021-06-15] MEDS: hydrOXYzine PAMOATE 25 MG CAPSULE (FP) PO PRN ×2 (13:30→21:07)
[2021-06-15] MEDS: THIAMINE HCL 100 MG TABLET (FP) PO SCH (21:06)
[2021-06-15] MEDS: QUEtiapine FUMARATE 100 MG TABLET (FP) PO SCH (21:06)
[2021-06-16] MEDS ORDERED: methaDONE HCL 40 MG DISPERSABLE TABLET ONE (03:57)
[2021-06-16] MEDS: busPIRone HCL 5 MG TABLET PO SCH ×3 (06:12→21:10)
[2021-06-16] MEDS: hydrOXYzine PAMOATE 25 MG CAPSULE (FP) PO PRN ×3 (06:14→17:53)
[2021-06-16] MEDS ORDERED: cloNIDine HCL 0.1 MG TABLET PO ONE (10:12)
[2021-06-16] MEDS: VENLAFAXINE HCL 37.5 MG E.R. CAPSULE PO SCH (10:26)
[2021-06-16] MEDS: BACITRACIN 0.9 GM PACKET TP SCH ×2 (10:26→21:10)
[2021-06-16] MEDS: PRENATAL VITAMINS W/ FOLIC ACID TABLET (FP) PO SCH (10:26)
[2021-06-16 14:08] LABS: SARS-CoV-2 NAA Not Detected (Not Detected)
[2021-06-16] MEDS: THIAMINE HCL 100 MG TABLET (FP) PO SCH (21:10)
[2021-06-16] MEDS: QUEtiapine FUMARATE 100 MG TABLET (FP) PO SCH (21:10)
[2021-06-17] MEDS ORDERED: methaDONE HCL 40 MG DISPERSABLE TABLET ONE (03:51)
[2021-06-17] MEDS: busPIRone HCL 5 MG TABLET PO SCH (06:26)
[2021-06-17] MEDS: NICOTINE 10 MG CARTRIDGE (INHALER) IH PRN (06:26)
[2021-06-17] MEDS: VENLAFAXINE HCL 37.5 MG E.R. CAPSULE PO SCH (10:19)
[2021-06-17] MEDS: PRENATAL VITAMINS W/ FOLIC ACID TABLET (FP) PO SCH (10:19)
[2021-06-17] MEDS: BACITRACIN 0.9 GM PACKET TP SCH ×2 (10:20→21:48)
[2021-06-17] MEDS: hydrOXYzine PAMOATE 25 MG CAPSULE (FP) PO PRN (10:20)
[2021-06-17] MEDS: busPIRone HCL 10 MG TABLET (FP) PO SCH ×2 (13:37→21:48)
[2021-06-17] MEDS: hydrOXYzine PAMOATE 50 MG CAPSULE (FP) PO PRN ×2 (13:37→21:49)
[2021-06-17] MEDS: THIAMINE HCL 100 MG TABLET (FP) PO SCH (21:48)
[2021-06-17] MEDS: QUEtiapine FUMARATE 100 MG TABLET (FP) PO SCH (21:48)
[2021-06-18] MEDS ORDERED: methaDONE HCL 40 MG DISPERSABLE TABLET ONE (03:57)
[2021-06-18] MEDS: busPIRone HCL 10 MG TABLET (FP) PO SCH ×3 (06:19→21:11)
[2021-06-18] MEDS: NICOTINE 10 MG CARTRIDGE (INHALER) IH PRN ×2 (10:01→14:23)
[2021-06-18] MEDS: BACITRACIN 0.9 GM PACKET TP SCH ×2 (10:01→21:31)
[2021-06-18] MEDS: PRENATAL VITAMINS W/ FOLIC ACID TABLET (FP) PO SCH (10:01)
[2021-06-18] MEDS: VENLAFAXINE HCL 37.5 MG E.R. CAPSULE PO SCH (10:01)
[2021-06-18] MEDS: hydrOXYzine PAMOATE 50 MG CAPSULE (FP) PO PRN (10:01)
[2021-06-18] MEDS: QUEtiapine FUMARATE 100 MG TABLET (FP) PO SCH (21:10)
[2021-06-18] MEDS: THIAMINE HCL 100 MG TABLET (FP) PO SCH (21:11)
[2021-06-19] MEDS ORDERED: methaDONE HCL 40 MG DISPERSABLE TABLET ONE (04:02)
[2021-06-19] MEDS: busPIRone HCL 10 MG TABLET (FP) PO SCH ×3 (06:41→21:19)
[2021-06-19] MEDS: NICOTINE 10 MG CARTRIDGE (INHALER) IH PRN ×2 (09:57→21:19)
[2021-06-19] MEDS: BACITRACIN 0.9 GM PACKET TP SCH ×2 (09:57→21:19)
[2021-06-19] MEDS: PRENATAL VITAMINS W/ FOLIC ACID TABLET (FP) PO SCH (09:58)
[2021-06-19] MEDS: VENLAFAXINE HCL 37.5 MG E.R. CAPSULE PO SCH (09:58)
[2021-06-19] MEDS: hydrOXYzine PAMOATE 50 MG CAPSULE (FP) PO PRN (09:59)
[2021-06-19] MEDS: QUEtiapine FUMARATE 100 MG TABLET (FP) PO SCH (21:19)
[2021-06-19] MEDS: THIAMINE HCL 100 MG TABLET (FP) PO SCH (21:19)
[2021-06-20] MEDS ORDERED: methaDONE HCL 40 MG DISPERSABLE TABLET ONE (03:11)
[2021-06-20] MEDS: busPIRone HCL 10 MG TABLET (FP) PO SCH ×3 (06:14→21:22)
[2021-06-20] MEDS: PRENATAL VITAMINS W/ FOLIC ACID TABLET (FP) PO SCH (10:04)
[2021-06-20] MEDS: VENLAFAXINE HCL 37.5 MG E.R. CAPSULE PO SCH (10:05)
[2021-06-20] MEDS: BACITRACIN 0.9 GM PACKET TP SCH ×2 (10:05→21:23)
[2021-06-20] MEDS: NICOTINE 10 MG CARTRIDGE (INHALER) IH PRN ×2 (13:56→21:22)
[2021-06-20] MEDS: QUEtiapine FUMARATE 100 MG TABLET (FP) PO SCH (21:22)
[2021-06-20] MEDS: THIAMINE HCL 100 MG TABLET (FP) PO SCH (21:22)
[2021-06-21] MEDS ORDERED: methaDONE HCL 40 MG DISPERSABLE TABLET ONE (03:08)
[2021-06-21] MEDS: busPIRone HCL 10 MG TABLET (FP) PO SCH ×3 (05:57→21:09)
[2021-06-21] MEDS: hydrOXYzine PAMOATE 50 MG CAPSULE (FP) PO PRN (09:47)
[2021-06-21] MEDS: BACITRACIN 0.9 GM PACKET TP SCH ×2 (09:47→21:10)
[2021-06-21] MEDS: PRENATAL VITAMINS W/ FOLIC ACID TABLET (FP) PO SCH (09:47)
[2021-06-21] MEDS: VENLAFAXINE HCL 37.5 MG E.R. CAPSULE PO SCH (09:47)
[2021-06-21] MEDS: NICOTINE 10 MG CARTRIDGE (INHALER) IH PRN (12:53)
[2021-06-21] MEDS: THIAMINE HCL 100 MG TABLET (FP) PO SCH (21:09)
[2021-06-21] MEDS: QUEtiapine FUMARATE 100 MG TABLET (FP) PO SCH (21:09)
[2021-06-22] MEDS ORDERED: methaDONE HCL 40 MG DISPERSABLE TABLET ONE (03:17)
[2021-06-22] MEDS: busPIRone HCL 10 MG TABLET (FP) PO SCH ×3 (06:23→21:19)
[2021-06-22] MEDS: PRENATAL VITAMINS W/ FOLIC ACID TABLET (FP) PO SCH (10:41)
[2021-06-22] MEDS: BACITRACIN 0.9 GM PACKET TP SCH ×2 (10:42→21:20)
[2021-06-22] MEDS: VENLAFAXINE HCL 37.5 MG E.R. CAPSULE PO SCH (10:42)
[2021-06-22] MEDS: NICOTINE 10 MG CARTRIDGE (INHALER) IH PRN ×2 (10:42→18:42)
[2021-06-22] MEDS: THIAMINE HCL 100 MG TABLET (FP) PO SCH (21:19)
[2021-06-22] MEDS: QUEtiapine FUMARATE 100 MG TABLET (FP) PO SCH (21:19)
[2021-06-22] MEDS: hydrOXYzine PAMOATE 50 MG CAPSULE (FP) PO PRN (21:19)
[2021-06-23] MEDS ORDERED: methaDONE HCL 40 MG DISPERSABLE TABLET ONE (03:06)
[2021-06-23] MEDS: busPIRone HCL 10 MG TABLET (FP) PO SCH ×3 (06:26→21:04)
[2021-06-23] MEDS: NICOTINE 10 MG CARTRIDGE (INHALER) IH PRN ×2 (06:54→21:04)
[2021-06-23] MEDS: BACITRACIN 0.9 GM PACKET TP SCH ×2 (10:21→21:05)
[2021-06-23] MEDS: PRENATAL VITAMINS W/ FOLIC ACID TABLET (FP) PO SCH (10:21)
[2021-06-23] MEDS: VENLAFAXINE HCL 37.5 MG E.R. CAPSULE PO SCH (12:05)
[2021-06-23] MEDS: hydrOXYzine PAMOATE 50 MG CAPSULE (FP) PO PRN (21:04)
[2021-06-23] MEDS: THIAMINE HCL 100 MG TABLET (FP) PO SCH (21:04)
[2021-06-23] MEDS: QUEtiapine FUMARATE 100 MG TABLET (FP) PO SCH (21:04)
[2021-06-24] MEDS ORDERED: methaDONE HCL 40 MG DISPERSABLE TABLET ONE (03:35)
[2021-06-24] MEDS: busPIRone HCL 10 MG TABLET (FP) PO SCH ×3 (06:13→21:57)
[2021-06-24] MEDS: PRENATAL VITAMINS W/ FOLIC ACID TABLET (FP) PO SCH (10:00)
[2021-06-24] MEDS: NICOTINE 10 MG CARTRIDGE (INHALER) IH PRN ×3 (10:00→21:59)
[2021-06-24] MEDS: VENLAFAXINE HCL 37.5 MG E.R. CAPSULE PO SCH (10:01)
[2021-06-24] MEDS: BACITRACIN 0.9 GM PACKET TP SCH ×2 (10:01→21:57)
[2021-06-24] MEDS: hydrOXYzine PAMOATE 50 MG CAPSULE (FP) PO PRN ×2 (10:02→21:58)
[2021-06-24] MEDS: THIAMINE HCL 100 MG TABLET (FP) PO SCH (21:56)
[2021-06-24] MEDS: QUEtiapine FUMARATE 100 MG TABLET (FP) PO SCH (21:57)
[2021-06-25] MEDS ORDERED: methaDONE HCL 40 MG DISPERSABLE TABLET ONE (04:11)
[2021-06-25] MEDS: busPIRone HCL 10 MG TABLET (FP) PO SCH ×3 (06:33→21:10)
[2021-06-25] MEDS: NICOTINE 10 MG CARTRIDGE (INHALER) IH PRN ×3 (08:32→21:10)
[2021-06-25] MEDS: BACITRACIN 0.9 GM PACKET TP SCH ×2 (09:57→21:10)
[2021-06-25] MEDS: hydrOXYzine PAMOATE 50 MG CAPSULE (FP) PO PRN (09:58)
[2021-06-25] MEDS: PRENATAL VITAMINS W/ FOLIC ACID TABLET (FP) PO SCH (09:58)
[2021-06-25] MEDS: VENLAFAXINE HCL 37.5 MG E.R. CAPSULE PO SCH (09:58)
[2021-06-25] MEDS: THIAMINE HCL 100 MG TABLET (FP) PO SCH (21:10)
[2021-06-25] MEDS: QUEtiapine FUMARATE 100 MG TABLET (FP) PO SCH (21:10)
[2021-06-26] MEDS: busPIRone HCL 10 MG TABLET (FP) PO SCH ×3 (06:09→21:23)
[2021-06-26] MEDS ORDERED: methaDONE HCL 40 MG DISPERSABLE TABLET ONE (06:09)
[2021-06-26] MEDS: BACITRACIN 0.9 GM PACKET TP SCH ×2 (09:57→21:23)
[2021-06-26] MEDS: VENLAFAXINE HCL 37.5 MG E.R. CAPSULE PO SCH (09:57)
[2021-06-26] MEDS: PRENATAL VITAMINS W/ FOLIC ACID TABLET (FP) PO SCH (09:57)
[2021-06-26] MEDS: NICOTINE 10 MG CARTRIDGE (INHALER) IH PRN ×2 (09:57→19:29)
[2021-06-26] MEDS: hydrOXYzine PAMOATE 50 MG CAPSULE (FP) PO PRN (09:58)
[2021-06-26] MEDS: THIAMINE HCL 100 MG TABLET (FP) PO SCH (21:23)
[2021-06-26] MEDS: QUEtiapine FUMARATE 100 MG TABLET (FP) PO SCH (21:23)
[2021-06-27] MEDS ORDERED: methaDONE HCL 40 MG DISPERSABLE TABLET ONE (04:39)
[2021-06-27] MEDS: busPIRone HCL 10 MG TABLET (FP) PO SCH (06:39)
[2021-06-27 07:10] VITALS: BP 119/84; PULSE 84; TEMP 97.2
[2021-06-27] MEDS: PRENATAL VITAMINS W/ FOLIC ACID TABLET (FP) PO SCH (09:05)
[2021-06-27] MEDS: hydrOXYzine PAMOATE 50 MG CAPSULE (FP) PO PRN (09:05)
[2021-06-27] MEDS: BACITRACIN 0.9 GM PACKET TP SCH (09:05)
[2021-06-27] MEDS: VENLAFAXINE HCL 37.5 MG E.R. CAPSULE PO SCH (09:05)
== END 2021-06-27 09:36 | disposition home or self-care (01) | DRG 772 ==
LOC: YASAS 12:49 → Y3W 12:51
PROVIDERS: ADMIT Allergy & Immunology; ATTEND Allergy & Immunology
PROC: HZ42ZZZ Group Counseling for Substance Abuse Treatment, Cognitive-Behavioral (ICD-10-PCS; principal; 2021-06-14)
DX: F11.20 Opioid dependence, uncomplicated (principal); F10.20 Alcohol dependence, uncomplicated; F14.20 Cocaine dependence, uncomplicated; F13.20 Sedative, hypnotic or anxiolytic dependence, uncomplicated; F17.210 Nicotine dependence, cigarettes, uncomplicated; F19.282 Other psychoactive substance dependence with psychoactive substance-induced sleep disorder; F19.280 Other psychoactive substance dependence with psychoactive substance-induced anxiety disorder; F19.24 Other psychoactive substance dependence with psychoactive substance-induced mood disorder; F32.A Depression, unspecified; F41.9 Anxiety disorder, unspecified; G47.00 Insomnia, unspecified
CPT/HCPCS: C9803-CS; J0735; U0003; U0005

== ENCOUNTER 2021-07-11 18:55 | Inpatient (IN) | payer OTHER ==
[2021-07-11 20:48] VITALS: BMI 23.3
[2021-07-11] MEDS ORDERED: MAGNESIUM HYDROX 2400MG/30ML ORAL SUSPENSION 30 ML CUP PO PRN (22:19)
[2021-07-11] MEDS ORDERED: IBUPROFEN 400 MG TABLET (FP) PO PRN (22:19)
[2021-07-11] MEDS ORDERED: ACETAMINOPHEN 325 MG TABLET (FP) PO PRN (22:19)
[2021-07-11] MEDS ORDERED: LOPERAMIDE HCL 2 MG CAPSULE PO PRN (22:19)
[2021-07-11] MEDS ORDERED: guaiFENesin 200 MG/10 ML 10 ML UNIT-DOSE CUPS PO PRN (22:19)
[2021-07-11] MEDS ORDERED: MAG HYDROX/AL HYDROX/SIMETH 30 ML UNIT-DOSE CUP PO PRN (22:19)
[2021-07-11] MEDS ORDERED: P-EPHED 60MG/TRIPROLIDI 2.5MG TABLET PO PRN (22:19)
[2021-07-11] MEDS ORDERED: hydrOXYzine PAMOATE 25 MG CAPSULE (FP) PO PRN (22:19)
[2021-07-11] MEDS ORDERED: MAGNESIUM CITRATE 300 ML BOTTLE PO PRN (22:19)
[2021-07-12] MEDS: MELATONIN 5 MG TABLETS PO SCH ×2 (07:10→21:52)
[2021-07-12] MEDS: NICOTINE 10 MG CARTRIDGE (INHALER) IH PRN ×2 (08:39→14:05)
[2021-07-12] MEDS ORDERED: methaDONE HCL 10 MG TABLET PO ONE (08:53)
[2021-07-12] MEDS ORDERED: methaDONE HCL 40 MG DISPERSABLE TABLET ONE (09:14)
[2021-07-12] MEDS: NICOTINE 21 MG/24 HOURS TOPICAL PATCH TD SCH (09:18)
[2021-07-12] MEDS: PRENATAL VITAMINS W/ FOLIC ACID TABLET (FP) PO SCH (09:18)
[2021-07-12 11:05] LABS: CALCIUM 9.5 mg/dL (8.5-10.1)
[2021-07-12 11:06] LABS: ALBUMIN 3.8 g/dl (3.4-5.0); BLOOD UREA NITROGEN 25.5 mg/dL (7-18)
[2021-07-12 11:09] LABS: CREATININE 1.1 mg/dL (0.55-1.3)
[2021-07-12 11:11] LABS: BILIRUBIN,TOTAL 0.4 mg/dL (0.2-1); TOT PROT 7.6 g/dl (6.4-8.2)
[2021-07-12 11:48] LABS: HEMATOCRIT 39.4 % (35.4-49); HEMOGLOBIN 13.1 GM/dL (11.7-16.9); MCH 28.6 pg (25.7-33.7); MCHC 33.4 g/dl (32.0-35.9); MEAN CELL VOLUME 85.8 fl (80-96); MEAN PLT VOLUME 10.2 fl (7.5-11.1); PLATELET COUNT 204 10^3/uL (134-434); RBC 4.59 M/mm3 (4.00-5.60); RDW 14.8 % (11.9-15.9); WHITE BLOOD COUNT 7.7 K/mm3 (4.0-10.0)
[2021-07-12] MEDS: hydrOXYzine PAMOATE 50 MG CAPSULE (FP) PO PRN ×2 (14:05→21:53)
[2021-07-12 14:29] LABS: PH,URINE 7.5 (5.0-8.0); URINE APPEARANCE CLEAR; URINE BILIRUBIN NEGATIVE (NEGATIVE); URINE COLOR YELLOW; URINE GLUCOSE (UA) NEGATIVE (NEGATIVE); URINE KETONE NEGATIVE (NEGATIVE); URINE LEUK ESTERASE NEGATIVE (NEGATIVE); URINE NITRITE NEGATIVE (NEGATIVE); URINE PROTEIN NEGATIVE (NEGATIVE); URINE UROBILINOGEN 0.2 mg/dL (0.2-1.0)
[2021-07-12] MEDS: VENLAFAXINE HCL 75 MG E.R. CAPSULES PO SCH (14:39)
[2021-07-12] MEDS: THIAMINE HCL 100 MG TABLET (FP) PO SCH (21:51)
[2021-07-12] MEDS: QUEtiapine FUMARATE 100 MG TABLET (FP) PO SCH (21:51)
[2021-07-13] MEDS ORDERED: methaDONE HCL 10 MG TABLET PO SCH (06:00)
[2021-07-13] MEDS ORDERED: methaDONE HCL 40 MG DISPERSABLE TABLET ONE (06:11)
[2021-07-13] MEDS: hydrOXYzine PAMOATE 50 MG CAPSULE (FP) PO PRN ×3 (06:32→21:06)
[2021-07-13] MEDS: PRENATAL VITAMINS W/ FOLIC ACID TABLET (FP) PO SCH (09:53)
[2021-07-13] MEDS: NICOTINE 21 MG/24 HOURS TOPICAL PATCH TD SCH (09:53)
[2021-07-13] MEDS: VENLAFAXINE HCL 75 MG E.R. CAPSULES PO SCH (09:53)
[2021-07-13] MEDS: NICOTINE 10 MG CARTRIDGE (INHALER) IH PRN (09:54)
[2021-07-13] MEDS: MELATONIN 5 MG TABLETS PO SCH (21:05)
[2021-07-13] MEDS: THIAMINE HCL 100 MG TABLET (FP) PO SCH (21:05)
[2021-07-13] MEDS: QUEtiapine FUMARATE 100 MG TABLET (FP) PO SCH (21:06)
[2021-07-14] MEDS ORDERED: methaDONE HCL 40 MG DISPERSABLE TABLET ONE (03:14)
[2021-07-14] MEDS: hydrOXYzine PAMOATE 50 MG CAPSULE (FP) PO PRN ×3 (06:20→21:31)
[2021-07-14] MEDS: NICOTINE 10 MG CARTRIDGE (INHALER) IH PRN (07:20)
[2021-07-14] MEDS: NICOTINE 21 MG/24 HOURS TOPICAL PATCH TD SCH (09:15)
[2021-07-14] MEDS: PRENATAL VITAMINS W/ FOLIC ACID TABLET (FP) PO SCH (09:15)
[2021-07-14] MEDS: VENLAFAXINE HCL 75 MG E.R. CAPSULES PO SCH (09:18)
[2021-07-14] MEDS: cloNIDine HCL 0.1 MG TABLET PO SCH ×2 (13:58→21:31)
[2021-07-14] MEDS: MELATONIN 5 MG TABLETS PO SCH (21:31)
[2021-07-14] MEDS: THIAMINE HCL 100 MG TABLET (FP) PO SCH (21:31)
[2021-07-14] MEDS: QUEtiapine FUMARATE 100 MG TABLET (FP) PO SCH (21:31)
[2021-07-15] MEDS ORDERED: methaDONE HCL 40 MG DISPERSABLE TABLET ONE (03:10)
[2021-07-15] MEDS: hydrOXYzine PAMOATE 50 MG CAPSULE (FP) PO PRN ×3 (06:09→21:27)
[2021-07-15] MEDS: NICOTINE 21 MG/24 HOURS TOPICAL PATCH TD SCH (09:14)
[2021-07-15] MEDS: VENLAFAXINE HCL 75 MG E.R. CAPSULES PO SCH (09:14)
[2021-07-15] MEDS: cloNIDine HCL 0.1 MG TABLET PO SCH ×2 (09:14→21:27)
[2021-07-15] MEDS: PRENATAL VITAMINS W/ FOLIC ACID TABLET (FP) PO SCH (09:14)
[2021-07-15] MEDS: NICOTINE 10 MG CARTRIDGE (INHALER) IH PRN ×3 (09:15→21:28)
[2021-07-15 18:08] LABS: SARS-CoV-2 NAA Not Detected (Not Detected)
[2021-07-15] MEDS: QUEtiapine FUMARATE 100 MG TABLET (FP) PO SCH (21:27)
[2021-07-15] MEDS: MELATONIN 5 MG TABLETS PO SCH (21:27)
[2021-07-15] MEDS: THIAMINE HCL 100 MG TABLET (FP) PO SCH (21:27)
[2021-07-16] MEDS ORDERED: methaDONE HCL 40 MG DISPERSABLE TABLET ONE (03:09)
[2021-07-16] MEDS: hydrOXYzine PAMOATE 50 MG CAPSULE (FP) PO PRN (06:29)
[2021-07-16] MEDS: PRENATAL VITAMINS W/ FOLIC ACID TABLET (FP) PO SCH (09:32)
[2021-07-16] MEDS: NICOTINE 21 MG/24 HOURS TOPICAL PATCH TD SCH (09:32)
[2021-07-16] MEDS: cloNIDine HCL 0.1 MG TABLET PO SCH ×2 (09:32→21:06)
[2021-07-16] MEDS: VENLAFAXINE HCL 75 MG E.R. CAPSULES PO SCH (09:32)
[2021-07-16] MEDS: NICOTINE 10 MG CARTRIDGE (INHALER) IH PRN ×2 (09:33→19:48)
[2021-07-16] MEDS: QUEtiapine FUMARATE 100 MG TABLET (FP) PO SCH (21:06)
[2021-07-16] MEDS: MELATONIN 5 MG TABLETS PO SCH (21:06)
[2021-07-16] MEDS: THIAMINE HCL 100 MG TABLET (FP) PO SCH (21:06)
[2021-07-17] MEDS ORDERED: methaDONE HCL 40 MG DISPERSABLE TABLET ONE (03:26)
[2021-07-17] MEDS: hydrOXYzine PAMOATE 50 MG CAPSULE (FP) PO PRN ×2 (06:28→15:38)
[2021-07-17] MEDS: NICOTINE 10 MG CARTRIDGE (INHALER) IH PRN ×2 (06:50→21:26)
[2021-07-17] MEDS: cloNIDine HCL 0.1 MG TABLET PO SCH ×2 (09:56→21:25)
[2021-07-17] MEDS: PRENATAL VITAMINS W/ FOLIC ACID TABLET (FP) PO SCH (09:56)
[2021-07-17] MEDS: NICOTINE 21 MG/24 HOURS TOPICAL PATCH TD SCH (09:56)
[2021-07-17] MEDS: VENLAFAXINE HCL 75 MG E.R. CAPSULES PO SCH (09:57)
[2021-07-17] MEDS: QUEtiapine FUMARATE 100 MG TABLET (FP) PO SCH (21:25)
[2021-07-17] MEDS: THIAMINE HCL 100 MG TABLET (FP) PO SCH (21:26)
[2021-07-17] MEDS: MELATONIN 5 MG TABLETS PO SCH (21:26)
[2021-07-18] MEDS ORDERED: methaDONE HCL 40 MG DISPERSABLE TABLET ONE (03:22)
[2021-07-18] MEDS: hydrOXYzine PAMOATE 50 MG CAPSULE (FP) PO PRN ×3 (06:32→21:26)
[2021-07-18] MEDS: cloNIDine HCL 0.1 MG TABLET PO SCH ×2 (09:38→21:26)
[2021-07-18] MEDS: VENLAFAXINE HCL 75 MG E.R. CAPSULES PO SCH (09:38)
[2021-07-18] MEDS: PRENATAL VITAMINS W/ FOLIC ACID TABLET (FP) PO SCH (09:39)
[2021-07-18] MEDS: NICOTINE 21 MG/24 HOURS TOPICAL PATCH TD SCH (09:39)
[2021-07-18] MEDS: THIAMINE HCL 100 MG TABLET (FP) PO SCH (21:26)
[2021-07-18] MEDS: MELATONIN 5 MG TABLETS PO SCH (21:26)
[2021-07-18] MEDS: QUEtiapine FUMARATE 100 MG TABLET (FP) PO SCH (21:26)
[2021-07-19] MEDS ORDERED: methaDONE HCL 40 MG DISPERSABLE TABLET ONE (03:14)
[2021-07-19] MEDS: hydrOXYzine PAMOATE 50 MG CAPSULE (FP) PO PRN ×2 (06:28→21:09)
[2021-07-19] MEDS: NICOTINE 21 MG/24 HOURS TOPICAL PATCH TD SCH (09:37)
[2021-07-19] MEDS: VENLAFAXINE HCL 75 MG E.R. CAPSULES PO SCH (09:37)
[2021-07-19] MEDS: PRENATAL VITAMINS W/ FOLIC ACID TABLET (FP) PO SCH (09:38)
[2021-07-19] MEDS: cloNIDine HCL 0.1 MG TABLET PO SCH ×2 (09:38→21:46)
[2021-07-19] MEDS: NICOTINE 10 MG CARTRIDGE (INHALER) IH PRN ×2 (09:40→16:49)
[2021-07-19] MEDS: MELATONIN 5 MG TABLETS PO SCH (21:09)
[2021-07-19] MEDS: THIAMINE HCL 100 MG TABLET (FP) PO SCH (21:09)
[2021-07-19] MEDS: QUEtiapine FUMARATE 100 MG TABLET (FP) PO SCH (21:09)
[2021-07-20] MEDS ORDERED: methaDONE HCL 40 MG DISPERSABLE TABLET ONE (06:13)
[2021-07-20] MEDS: hydrOXYzine PAMOATE 50 MG CAPSULE (FP) PO PRN ×2 (06:23→21:06)
[2021-07-20] MEDS: PRENATAL VITAMINS W/ FOLIC ACID TABLET (FP) PO SCH (09:49)
[2021-07-20] MEDS: VENLAFAXINE HCL 75 MG E.R. CAPSULES PO SCH (09:49)
[2021-07-20] MEDS: NICOTINE 10 MG CARTRIDGE (INHALER) IH PRN ×2 (09:50→13:29)
[2021-07-20] MEDS: NICOTINE 21 MG/24 HOURS TOPICAL PATCH TD SCH (09:50)
[2021-07-20] MEDS: cloNIDine HCL 0.1 MG TABLET PO SCH ×2 (10:17→21:06)
[2021-07-20] MEDS: THIAMINE HCL 100 MG TABLET (FP) PO SCH (21:05)
[2021-07-20] MEDS: MELATONIN 5 MG TABLETS PO SCH (21:06)
[2021-07-20] MEDS: QUEtiapine FUMARATE 100 MG TABLET (FP) PO SCH (21:07)
[2021-07-21] MEDS ORDERED: methaDONE HCL 40 MG DISPERSABLE TABLET ONE (05:19)
[2021-07-21] MEDS: hydrOXYzine PAMOATE 50 MG CAPSULE (FP) PO PRN ×2 (06:12→21:32)
[2021-07-21] MEDS: cloNIDine HCL 0.1 MG TABLET PO SCH ×2 (09:18→21:32)
[2021-07-21] MEDS: VENLAFAXINE HCL 75 MG E.R. CAPSULES PO SCH (09:18)
[2021-07-21] MEDS: NICOTINE 21 MG/24 HOURS TOPICAL PATCH TD SCH (09:18)
[2021-07-21] MEDS: PRENATAL VITAMINS W/ FOLIC ACID TABLET (FP) PO SCH (09:18)
[2021-07-21] MEDS: NICOTINE 10 MG CARTRIDGE (INHALER) IH PRN (15:37)
[2021-07-21] MEDS: MELATONIN 5 MG TABLETS PO SCH (21:31)
[2021-07-21] MEDS: THIAMINE HCL 100 MG TABLET (FP) PO SCH (21:32)
[2021-07-21] MEDS: QUEtiapine FUMARATE 100 MG TABLET (FP) PO SCH (21:32)
[2021-07-22] MEDS ORDERED: methaDONE HCL 40 MG DISPERSABLE TABLET ONE (04:27)
[2021-07-22] MEDS: VENLAFAXINE HCL 75 MG E.R. CAPSULES PO SCH (10:13)
[2021-07-22] MEDS: cloNIDine HCL 0.1 MG TABLET PO SCH ×2 (10:14→21:13)
[2021-07-22] MEDS: PRENATAL VITAMINS W/ FOLIC ACID TABLET (FP) PO SCH (10:14)
[2021-07-22] MEDS: NICOTINE 21 MG/24 HOURS TOPICAL PATCH TD SCH (10:14)
[2021-07-22] MEDS: hydrOXYzine PAMOATE 50 MG CAPSULE (FP) PO PRN (15:50)
[2021-07-22] MEDS: NICOTINE 10 MG CARTRIDGE (INHALER) IH PRN (15:50)
[2021-07-22] MEDS: MELATONIN 5 MG TABLETS PO SCH (21:12)
[2021-07-22] MEDS: THIAMINE HCL 100 MG TABLET (FP) PO SCH (21:13)
[2021-07-22] MEDS: QUEtiapine FUMARATE 100 MG TABLET (FP) PO SCH (21:13)
[2021-07-23] MEDS ORDERED: methaDONE HCL 40 MG DISPERSABLE TABLET ONE (05:16)
[2021-07-23] MEDS: hydrOXYzine PAMOATE 50 MG CAPSULE (FP) PO PRN ×3 (06:33→21:09)
[2021-07-23] MEDS: cloNIDine HCL 0.1 MG TABLET PO SCH ×2 (09:52→21:09)
[2021-07-23] MEDS: VENLAFAXINE HCL 75 MG E.R. CAPSULES PO SCH (09:53)
[2021-07-23] MEDS: NICOTINE 21 MG/24 HOURS TOPICAL PATCH TD SCH (09:53)
[2021-07-23] MEDS: PRENATAL VITAMINS W/ FOLIC ACID TABLET (FP) PO SCH (09:54)
[2021-07-23] MEDS: NICOTINE 10 MG CARTRIDGE (INHALER) IH PRN ×2 (11:47→21:09)
[2021-07-23] MEDS: MELATONIN 5 MG TABLETS PO SCH (21:09)
[2021-07-23] MEDS: QUEtiapine FUMARATE 100 MG TABLET (FP) PO SCH (21:09)
[2021-07-23] MEDS: THIAMINE HCL 100 MG TABLET (FP) PO SCH (21:09)
[2021-07-24] MEDS ORDERED: methaDONE HCL 40 MG DISPERSABLE TABLET ONE (03:38)
[2021-07-24] MEDS: hydrOXYzine PAMOATE 50 MG CAPSULE (FP) PO PRN ×2 (06:07→21:10)
[2021-07-24] MEDS: NICOTINE 10 MG CARTRIDGE (INHALER) IH PRN (06:31)
[2021-07-24] MEDS: VENLAFAXINE HCL 75 MG E.R. CAPSULES PO SCH (09:27)
[2021-07-24] MEDS: NICOTINE 21 MG/24 HOURS TOPICAL PATCH TD SCH (09:27)
[2021-07-24] MEDS: cloNIDine HCL 0.1 MG TABLET PO SCH ×2 (09:27→21:10)
[2021-07-24] MEDS: PRENATAL VITAMINS W/ FOLIC ACID TABLET (FP) PO SCH (09:27)
[2021-07-24] MEDS: MELATONIN 5 MG TABLETS PO SCH (21:10)
[2021-07-24] MEDS: QUEtiapine FUMARATE 100 MG TABLET (FP) PO SCH (21:10)
[2021-07-24] MEDS: THIAMINE HCL 100 MG TABLET (FP) PO SCH (21:10)
[2021-07-25] MEDS ORDERED: methaDONE HCL 40 MG DISPERSABLE TABLET ONE (03:25)
[2021-07-25] MEDS: hydrOXYzine PAMOATE 50 MG CAPSULE (FP) PO PRN (06:18)
[2021-07-25] MEDS: NICOTINE 10 MG CARTRIDGE (INHALER) IH PRN ×2 (08:50→16:21)
[2021-07-25] MEDS: PRENATAL VITAMINS W/ FOLIC ACID TABLET (FP) PO SCH (09:58)
[2021-07-25] MEDS: cloNIDine HCL 0.1 MG TABLET PO SCH ×2 (09:58→21:04)
[2021-07-25] MEDS: VENLAFAXINE HCL 75 MG E.R. CAPSULES PO SCH (09:58)
[2021-07-25] MEDS: NICOTINE 21 MG/24 HOURS TOPICAL PATCH TD SCH (09:59)
[2021-07-25] MEDS ORDERED: COLLOIDAL OATMEAL 1 BAR EACH TP PRN (11:26)
[2021-07-25] MEDS: THIAMINE HCL 100 MG TABLET (FP) PO SCH (21:04)
[2021-07-25] MEDS: QUEtiapine FUMARATE 100 MG TABLET (FP) PO SCH (21:04)
[2021-07-25] MEDS: MELATONIN 5 MG TABLETS PO SCH (21:04)
[2021-07-26] MEDS ORDERED: methaDONE HCL 40 MG DISPERSABLE TABLET ONE (04:04)
[2021-07-26] MEDS: hydrOXYzine PAMOATE 50 MG CAPSULE (FP) PO PRN (06:13)
[2021-07-26] MEDS: VENLAFAXINE HCL 75 MG E.R. CAPSULES PO SCH (10:04)
[2021-07-26] MEDS: PRENATAL VITAMINS W/ FOLIC ACID TABLET (FP) PO SCH (10:04)
[2021-07-26] MEDS: cloNIDine HCL 0.1 MG TABLET PO SCH ×2 (10:04→21:15)
[2021-07-26] MEDS: NICOTINE 21 MG/24 HOURS TOPICAL PATCH TD SCH (10:05)
[2021-07-26] MEDS: NICOTINE 10 MG CARTRIDGE (INHALER) IH PRN ×2 (12:25→21:15)
[2021-07-26] MEDS: THIAMINE HCL 100 MG TABLET (FP) PO SCH (21:14)
[2021-07-26] MEDS: MELATONIN 5 MG TABLETS PO SCH (21:14)
[2021-07-26] MEDS: QUEtiapine FUMARATE 100 MG TABLET (FP) PO SCH (21:14)
[2021-07-27] MEDS ORDERED: methaDONE HCL 40 MG DISPERSABLE TABLET ONE (03:23)
[2021-07-27] MEDS: hydrOXYzine PAMOATE 50 MG CAPSULE (FP) PO PRN ×2 (06:13→21:22)
[2021-07-27] MEDS: PRENATAL VITAMINS W/ FOLIC ACID TABLET (FP) PO SCH (09:45)
[2021-07-27] MEDS: VENLAFAXINE HCL 75 MG E.R. CAPSULES PO SCH (09:45)
[2021-07-27] MEDS: NICOTINE 21 MG/24 HOURS TOPICAL PATCH TD SCH (09:45)
[2021-07-27] MEDS: cloNIDine HCL 0.1 MG TABLET PO SCH ×2 (09:45→21:22)
[2021-07-27] MEDS: NICOTINE 10 MG CARTRIDGE (INHALER) IH PRN (09:46)
[2021-07-27] MEDS: MELATONIN 5 MG TABLETS PO SCH (21:22)
[2021-07-27] MEDS: THIAMINE HCL 100 MG TABLET (FP) PO SCH (21:22)
[2021-07-27] MEDS: QUEtiapine FUMARATE 100 MG TABLET (FP) PO SCH (21:22)
[2021-07-28] MEDS ORDERED: methaDONE HCL 40 MG DISPERSABLE TABLET ONE (03:07)
[2021-07-28] MEDS: hydrOXYzine PAMOATE 50 MG CAPSULE (FP) PO PRN ×2 (06:20→21:08)
[2021-07-28] MEDS: cloNIDine HCL 0.1 MG TABLET PO SCH ×2 (09:43→21:08)
[2021-07-28] MEDS: NICOTINE 10 MG CARTRIDGE (INHALER) IH PRN (09:43)
[2021-07-28] MEDS: NICOTINE 21 MG/24 HOURS TOPICAL PATCH TD SCH (09:44)
[2021-07-28] MEDS: VENLAFAXINE HCL 75 MG E.R. CAPSULES PO SCH (09:44)
[2021-07-28] MEDS: PRENATAL VITAMINS W/ FOLIC ACID TABLET (FP) PO SCH (09:44)
[2021-07-28] MEDS: MELATONIN 5 MG TABLETS PO SCH (21:08)
[2021-07-28] MEDS: QUEtiapine FUMARATE 100 MG TABLET (FP) PO SCH (21:08)
[2021-07-28] MEDS: THIAMINE HCL 100 MG TABLET (FP) PO SCH (21:08)
[2021-07-29] MEDS ORDERED: methaDONE HCL 40 MG DISPERSABLE TABLET ONE (02:56)
[2021-07-29] MEDS: hydrOXYzine PAMOATE 50 MG CAPSULE (FP) PO PRN ×2 (06:07→21:29)
[2021-07-29] MEDS: VENLAFAXINE HCL 75 MG E.R. CAPSULES PO SCH (09:45)
[2021-07-29] MEDS: cloNIDine HCL 0.1 MG TABLET PO SCH ×2 (09:45→21:29)
[2021-07-29] MEDS: PRENATAL VITAMINS W/ FOLIC ACID TABLET (FP) PO SCH (09:45)
[2021-07-29] MEDS: NICOTINE 21 MG/24 HOURS TOPICAL PATCH TD SCH (09:46)
[2021-07-29] MEDS: NICOTINE 10 MG CARTRIDGE (INHALER) IH PRN (09:46)
[2021-07-29] MEDS: MELATONIN 5 MG TABLETS PO SCH (21:28)
[2021-07-29] MEDS: THIAMINE HCL 100 MG TABLET (FP) PO SCH (21:28)
[2021-07-29] MEDS: QUEtiapine FUMARATE 100 MG TABLET (FP) PO SCH (21:29)
[2021-07-30] MEDS ORDERED: methaDONE HCL 40 MG DISPERSABLE TABLET ONE (05:41)
[2021-07-30] MEDS: hydrOXYzine PAMOATE 50 MG CAPSULE (FP) PO PRN ×2 (09:46→21:27)
[2021-07-30] MEDS: cloNIDine HCL 0.1 MG TABLET PO SCH ×2 (09:46→21:25)
[2021-07-30] MEDS: PRENATAL VITAMINS W/ FOLIC ACID TABLET (FP) PO SCH (09:46)
[2021-07-30] MEDS: VENLAFAXINE HCL 75 MG E.R. CAPSULES PO SCH (09:46)
[2021-07-30] MEDS: NICOTINE 21 MG/24 HOURS TOPICAL PATCH TD SCH (09:47)
[2021-07-30] MEDS: NICOTINE 10 MG CARTRIDGE (INHALER) IH PRN ×2 (09:47→21:37)
[2021-07-30] MEDS: THIAMINE HCL 100 MG TABLET (FP) PO SCH (21:25)
[2021-07-30] MEDS: QUEtiapine FUMARATE 100 MG TABLET (FP) PO SCH (21:25)
[2021-07-30] MEDS: MELATONIN 5 MG TABLETS PO SCH (21:25)
[2021-07-31] MEDS ORDERED: methaDONE HCL 40 MG DISPERSABLE TABLET ONE (03:23)
[2021-07-31] MEDS: cloNIDine HCL 0.1 MG TABLET PO SCH ×2 (09:36→21:45)
[2021-07-31] MEDS: NICOTINE 21 MG/24 HOURS TOPICAL PATCH TD SCH (09:36)
[2021-07-31] MEDS: PRENATAL VITAMINS W/ FOLIC ACID TABLET (FP) PO SCH (09:36)
[2021-07-31] MEDS: NICOTINE 10 MG CARTRIDGE (INHALER) IH PRN ×2 (09:37→21:47)
[2021-07-31] MEDS: hydrOXYzine PAMOATE 50 MG CAPSULE (FP) PO PRN ×2 (09:38→21:45)
[2021-07-31] MEDS: VENLAFAXINE HCL 75 MG E.R. CAPSULES PO SCH (09:38)
[2021-07-31] MEDS: QUEtiapine FUMARATE 100 MG TABLET (FP) PO SCH (21:45)
[2021-07-31] MEDS: THIAMINE HCL 100 MG TABLET (FP) PO SCH (21:45)
[2021-07-31] MEDS: MELATONIN 5 MG TABLETS PO SCH (21:45)
[2021-08-01] MEDS ORDERED: methaDONE HCL 40 MG DISPERSABLE TABLET ONE (03:21)
[2021-08-01] MEDS: NICOTINE 10 MG CARTRIDGE (INHALER) IH PRN ×3 (07:17→21:23)
[2021-08-01] MEDS: PRENATAL VITAMINS W/ FOLIC ACID TABLET (FP) PO SCH (09:36)
[2021-08-01] MEDS: cloNIDine HCL 0.1 MG TABLET PO SCH ×2 (09:36→21:23)
[2021-08-01] MEDS: VENLAFAXINE HCL 75 MG E.R. CAPSULES PO SCH (09:36)
[2021-08-01] MEDS: NICOTINE 21 MG/24 HOURS TOPICAL PATCH TD SCH (09:37)
[2021-08-01] MEDS: QUEtiapine FUMARATE 100 MG TABLET (FP) PO SCH (21:23)
[2021-08-01] MEDS: MELATONIN 5 MG TABLETS PO SCH (21:23)
[2021-08-01] MEDS: THIAMINE HCL 100 MG TABLET (FP) PO SCH (21:23)
[2021-08-01] MEDS: hydrOXYzine PAMOATE 50 MG CAPSULE (FP) PO PRN (21:23)
[2021-08-02] MEDS ORDERED: methaDONE HCL 40 MG DISPERSABLE TABLET ONE (04:02)
[2021-08-02] MEDS: hydrOXYzine PAMOATE 50 MG CAPSULE (FP) PO PRN ×2 (06:20→21:06)
[2021-08-02] MEDS: VENLAFAXINE HCL 75 MG E.R. CAPSULES PO SCH (09:28)
[2021-08-02] MEDS: cloNIDine HCL 0.1 MG TABLET PO SCH ×2 (09:28→21:06)
[2021-08-02] MEDS: PRENATAL VITAMINS W/ FOLIC ACID TABLET (FP) PO SCH (09:29)
[2021-08-02] MEDS: NICOTINE 21 MG/24 HOURS TOPICAL PATCH TD SCH (09:29)
[2021-08-02] MEDS: NICOTINE 10 MG CARTRIDGE (INHALER) IH PRN (09:29)
[2021-08-02] MEDS: QUEtiapine FUMARATE 100 MG TABLET (FP) PO SCH (21:06)
[2021-08-02] MEDS: THIAMINE HCL 100 MG TABLET (FP) PO SCH (21:06)
[2021-08-02] MEDS: MELATONIN 5 MG TABLETS PO SCH (21:06)
[2021-08-03] MEDS ORDERED: methaDONE HCL 40 MG DISPERSABLE TABLET ONE (02:04)
[2021-08-03] MEDS: hydrOXYzine PAMOATE 50 MG CAPSULE (FP) PO PRN ×2 (06:19→21:31)
[2021-08-03] MEDS: NICOTINE 10 MG CARTRIDGE (INHALER) IH PRN ×2 (08:34→13:31)
[2021-08-03] MEDS: cloNIDine HCL 0.1 MG TABLET PO SCH ×2 (09:37→21:31)
[2021-08-03] MEDS: PRENATAL VITAMINS W/ FOLIC ACID TABLET (FP) PO SCH (09:37)
[2021-08-03] MEDS: VENLAFAXINE HCL 75 MG E.R. CAPSULES PO SCH (09:37)
[2021-08-03] MEDS: NICOTINE 21 MG/24 HOURS TOPICAL PATCH TD SCH (09:38)
[2021-08-03] MEDS: MELATONIN 5 MG TABLETS PO SCH (21:30)
[2021-08-03] MEDS: THIAMINE HCL 100 MG TABLET (FP) PO SCH (21:30)
[2021-08-03] MEDS: QUEtiapine FUMARATE 100 MG TABLET (FP) PO SCH (21:31)
[2021-08-04] MEDS ORDERED: methaDONE HCL 40 MG DISPERSABLE TABLET ONE (02:17)
[2021-08-04] MEDS: hydrOXYzine PAMOATE 50 MG CAPSULE (FP) PO PRN (06:21)
[2021-08-04 06:32] VITALS: TEMP 97.3
[2021-08-04 08:47] VITALS: BP 116/70; PULSE 83
[2021-08-04] MEDS: PRENATAL VITAMINS W/ FOLIC ACID TABLET (FP) PO SCH (09:03)
[2021-08-04] MEDS: NICOTINE 21 MG/24 HOURS TOPICAL PATCH TD SCH (09:03)
[2021-08-04] MEDS: VENLAFAXINE HCL 75 MG E.R. CAPSULES PO SCH (09:03)
[2021-08-04] MEDS: cloNIDine HCL 0.1 MG TABLET PO SCH (09:03)
[2021-08-04] MEDS: NICOTINE 10 MG CARTRIDGE (INHALER) IH PRN (09:05)
== END 2021-08-04 09:40 | disposition home or self-care (01) | DRG 772 ==
LOC: YASAS 18:55 → Y3E 23:48
PROVIDERS: ADMIT Allergy & Immunology; ATTEND Allergy & Immunology
PROC: HZ42ZZZ Group Counseling for Substance Abuse Treatment, Cognitive-Behavioral (ICD-10-PCS; principal; 2021-07-11)
DX: F11.20 Opioid dependence, uncomplicated (principal); F14.20 Cocaine dependence, uncomplicated; F10.10 Alcohol abuse, uncomplicated; F12.20 Cannabis dependence, uncomplicated; F17.210 Nicotine dependence, cigarettes, uncomplicated; F19.282 Other psychoactive substance dependence with psychoactive substance-induced sleep disorder; F19.280 Other psychoactive substance dependence with psychoactive substance-induced anxiety disorder; F19.24 Other psychoactive substance dependence with psychoactive substance-induced mood disorder; F41.9 Anxiety disorder, unspecified; F32.A Depression, unspecified; G47.00 Insomnia, unspecified; K21.9 Gastro-esophageal reflux disease without esophagitis; Z62.810 Personal history of physical and sexual abuse in childhood
CPT/HCPCS: 36415; 80053; 81003; 85027; 86780; C9803-CS; J0735; U0003; U0005

== ENCOUNTER 2022-04-03 11:24 | Inpatient (IN) | payer OTHER ==
[2022-04-03 11:57] VITALS: BMI 25.0
[2022-04-03] MEDS ORDERED: ACETAMINOPHEN 325 MG TABLET (FP) PO PRN (12:08)
[2022-04-03] MEDS ORDERED: BENZOCAINE/MENTHOL (CHLORASEPTIC ) LOZENGE MM PRN (12:08)
[2022-04-03] MEDS ORDERED: MAGNESIUM HYDROX 2400MG/30ML ORAL SUSPENSION 30 ML CUP PO PRN (12:08)
[2022-04-03] MEDS ORDERED: guaiFENesin 200 MG/10 ML 10 ML UNIT-DOSE CUPS PO PRN (12:08)
[2022-04-03] MEDS ORDERED: P-EPHED 60MG/TRIPROLIDI 2.5MG TABLET PO PRN (12:08)
[2022-04-03] MEDS ORDERED: POLYETHYLENE GLYCOL (HEALTHYLAX) 3350 17 GM PACKET PO PRN (12:08)
[2022-04-03] MEDS ORDERED: IBUPROFEN 400 MG TABLET (FP) PO PRN (12:08)
[2022-04-03] MEDS ORDERED: LOPERAMIDE HCL 2 MG CAPSULE PO PRN (12:08)
[2022-04-03] MEDS ORDERED: MAG HYDROX/AL HYDROX/SIMETH 30 ML UNIT-DOSE CUP PO PRN (12:08)
[2022-04-03] MEDS: PRENATAL VITAMINS W/ FOLIC ACID TABLET (FP) PO SCH (16:44)
[2022-04-03] MEDS: NICOTINE 7 MG/24 HOURS TOPICAL PATCH TD SCH (16:44)
[2022-04-03 20:35] LABS: PH,URINE 5.5 (5.0-8.0); URINE APPEARANCE CLEAR; URINE BILIRUBIN NEGATIVE (NEGATIVE); URINE COLOR YELLOW; URINE GLUCOSE (UA) NEGATIVE (NEGATIVE); URINE KETONE NEGATIVE (NEGATIVE); URINE LEUK ESTERASE NEGATIVE (NEGATIVE); URINE NITRITE NEGATIVE (NEGATIVE); URINE PROTEIN NEGATIVE (NEGATIVE); URINE UROBILINOGEN 0.2 mg/dL (0.2-1.0)
[2022-04-03] MEDS: THIAMINE HCL 100 MG TABLET (FP) PO SCH (21:14)
[2022-04-03] MEDS: hydrOXYzine PAMOATE 25 MG CAPSULE (FP) PO PRN (21:15)
[2022-04-03] MEDS ORDERED: MELATONIN 5 MG TABLETS PO SCH (22:00)
[2022-04-04] MEDS ORDERED: methaDONE HCL 10 MG TABLET PO SCH (07:45)
[2022-04-04] MEDS ORDERED: METHADONE PO ONE (08:00)
[2022-04-04] MEDS: NICOTINE 7 MG/24 HOURS TOPICAL PATCH TD SCH (09:48)
[2022-04-04] MEDS: PRENATAL VITAMINS W/ FOLIC ACID TABLET (FP) PO SCH (09:48)
[2022-04-04] MEDS: hydrOXYzine PAMOATE 25 MG CAPSULE (FP) PO PRN (09:48)
[2022-04-04] MEDS: busPIRone HCL 10 MG TABLET (FP) PO SCH ×2 (13:21→21:25)
[2022-04-04 13:40] LABS: HEMATOCRIT 38.7 % (35.4-49); HEMOGLOBIN 12.5 GM/dL (11.7-16.9); MCH 27.9 pg (25.7-33.7); MCHC 32.2 g/dl (32.0-35.9); MEAN CELL VOLUME 86.6 fl (80-96); MEAN PLT VOLUME 10.9 fl (7.5-11.1); PLATELET COUNT 190 10^3/uL (134-434); RBC 4.47 M/mm3 (4.00-5.60); RDW 12.5 % (11.9-15.9); WHITE BLOOD COUNT 5.4 K/mm3 (4.0-10.0)
[2022-04-04] MEDS: cloNIDine HCL 0.1 MG TABLET PO PRN (14:29)
[2022-04-04 15:02] LABS: ALBUMIN 3.3 g/dl (3.4-5.0); BLOOD UREA NITROGEN 16.5 mg/dL (7-18); CALCIUM 9.1 mg/dL (8.5-10.1)
[2022-04-04 15:06] LABS: BILIRUBIN,TOTAL 0.2 mg/dL (0.2-1); TOT PROT 7.2 g/dl (6.4-8.2)
[2022-04-04 15:26] LABS: SYPHILIS W/ RPR CONF NON-REACTIVE (NONREACTIVE)
[2022-04-04] MEDS: hydrOXYzine PAMOATE 50 MG CAPSULE (FP) PO PRN (18:30)
[2022-04-04] MEDS: THIAMINE HCL 100 MG TABLET (FP) PO SCH (21:25)
[2022-04-04] MEDS: QUEtiapine FUMARATE 100 MG TABLET (FP) PO SCH (21:25)
[2022-04-05] MEDS: busPIRone HCL 10 MG TABLET (FP) PO SCH ×3 (05:57→21:10)
[2022-04-05] MEDS: NICOTINE 7 MG/24 HOURS TOPICAL PATCH TD SCH (09:28)
[2022-04-05] MEDS: cloNIDine HCL 0.1 MG TABLET PO PRN (09:28)
[2022-04-05] MEDS: PRENATAL VITAMINS W/ FOLIC ACID TABLET (FP) PO SCH (09:28)
[2022-04-05] MEDS ORDERED: COLLOIDAL OATMEAL 1 BAR EACH TP PRN (11:56)
[2022-04-05] MEDS: hydrOXYzine PAMOATE 50 MG CAPSULE (FP) PO PRN ×2 (13:26→21:10)
[2022-04-05] MEDS: QUEtiapine FUMARATE 100 MG TABLET (FP) PO SCH (21:09)
[2022-04-05] MEDS: THIAMINE HCL 100 MG TABLET (FP) PO SCH (21:10)
[2022-04-06] MEDS: busPIRone HCL 10 MG TABLET (FP) PO SCH ×3 (05:59→21:00)
[2022-04-06] MEDS: hydrOXYzine PAMOATE 50 MG CAPSULE (FP) PO PRN ×2 (09:29→17:42)
[2022-04-06] MEDS: NICOTINE 7 MG/24 HOURS TOPICAL PATCH TD SCH (09:29)
[2022-04-06] MEDS: PRENATAL VITAMINS W/ FOLIC ACID TABLET (FP) PO SCH (09:29)
[2022-04-06] MEDS: cloNIDine HCL 0.1 MG TABLET PO PRN (09:29)
[2022-04-06] MEDS: NICOTINE 10 MG CARTRIDGE (INHALER) IH PRN ×2 (09:30→12:45)
[2022-04-06] MEDS: QUEtiapine FUMARATE 100 MG TABLET (FP) PO SCH (21:00)
[2022-04-06] MEDS: THIAMINE HCL 100 MG TABLET (FP) PO SCH (21:00)
[2022-04-07] MEDS: busPIRone HCL 10 MG TABLET (FP) PO SCH ×3 (05:51→21:02)
[2022-04-07] MEDS: cloNIDine HCL 0.1 MG TABLET PO PRN (09:24)
[2022-04-07] MEDS: PRENATAL VITAMINS W/ FOLIC ACID TABLET (FP) PO SCH (09:24)
[2022-04-07] MEDS: NICOTINE 7 MG/24 HOURS TOPICAL PATCH TD SCH (09:24)
[2022-04-07] MEDS: hydrOXYzine PAMOATE 50 MG CAPSULE (FP) PO PRN ×2 (09:25→17:07)
[2022-04-07] MEDS: QUEtiapine FUMARATE 100 MG TABLET (FP) PO SCH (21:02)
[2022-04-07] MEDS: THIAMINE HCL 100 MG TABLET (FP) PO SCH (21:02)
[2022-04-08] MEDS: busPIRone HCL 10 MG TABLET (FP) PO SCH ×3 (06:14→21:19)
[2022-04-08] MEDS: PRENATAL VITAMINS W/ FOLIC ACID TABLET (FP) PO SCH (09:35)
[2022-04-08] MEDS: cloNIDine HCL 0.1 MG TABLET PO PRN (09:41)
[2022-04-08] MEDS: NICOTINE 7 MG/24 HOURS TOPICAL PATCH TD SCH (09:41)
[2022-04-08] MEDS: hydrOXYzine PAMOATE 50 MG CAPSULE (FP) PO PRN ×2 (09:41→21:20)
[2022-04-08] MEDS: THIAMINE HCL 100 MG TABLET (FP) PO SCH (21:19)
[2022-04-08] MEDS: QUEtiapine FUMARATE 100 MG TABLET (FP) PO SCH (21:19)
[2022-04-09] MEDS: busPIRone HCL 10 MG TABLET (FP) PO SCH ×3 (06:13→21:12)
[2022-04-09] MEDS: PRENATAL VITAMINS W/ FOLIC ACID TABLET (FP) PO SCH (09:41)
[2022-04-09] MEDS: NICOTINE 7 MG/24 HOURS TOPICAL PATCH TD SCH (09:41)
[2022-04-09] MEDS: hydrOXYzine PAMOATE 50 MG CAPSULE (FP) PO PRN ×2 (09:42→21:12)
[2022-04-09] MEDS: cloNIDine HCL 0.1 MG TABLET PO PRN (09:43)
[2022-04-09] MEDS: THIAMINE HCL 100 MG TABLET (FP) PO SCH (21:12)
[2022-04-09] MEDS: QUEtiapine FUMARATE 100 MG TABLET (FP) PO SCH (21:12)
[2022-04-10] MEDS: busPIRone HCL 10 MG TABLET (FP) PO SCH ×3 (05:51→21:17)
[2022-04-10] MEDS: PRENATAL VITAMINS W/ FOLIC ACID TABLET (FP) PO SCH (09:32)
[2022-04-10] MEDS: cloNIDine HCL 0.1 MG TABLET PO PRN (09:32)
[2022-04-10] MEDS: NICOTINE 7 MG/24 HOURS TOPICAL PATCH TD SCH (09:32)
[2022-04-10] MEDS: hydrOXYzine PAMOATE 50 MG CAPSULE (FP) PO PRN ×2 (11:35→17:29)
[2022-04-10] MEDS: NICOTINE 10 MG CARTRIDGE (INHALER) IH PRN (17:28)
[2022-04-10] MEDS: QUEtiapine FUMARATE 100 MG TABLET (FP) PO SCH (21:17)
[2022-04-10] MEDS: THIAMINE HCL 100 MG TABLET (FP) PO SCH (21:17)
[2022-04-11] MEDS: busPIRone HCL 10 MG TABLET (FP) PO SCH ×3 (05:52→21:30)
[2022-04-11] MEDS: cloNIDine HCL 0.1 MG TABLET PO PRN (09:39)
[2022-04-11] MEDS: PRENATAL VITAMINS W/ FOLIC ACID TABLET (FP) PO SCH (09:39)
[2022-04-11] MEDS: hydrOXYzine PAMOATE 50 MG CAPSULE (FP) PO PRN (09:41)
[2022-04-11] MEDS: NICOTINE 7 MG/24 HOURS TOPICAL PATCH TD SCH (14:31)
[2022-04-11] MEDS: NICOTINE 10 MG CARTRIDGE (INHALER) IH PRN (14:48)
[2022-04-11] MEDS: QUEtiapine FUMARATE 100 MG TABLET (FP) PO SCH (21:30)
[2022-04-11] MEDS: THIAMINE HCL 100 MG TABLET (FP) PO SCH (21:30)
[2022-04-11] MEDS: MINERAL OIL/PETROLAT/WATER TOPICAL CREAM 113 GM JAR TP SCH (21:31)
[2022-04-12] MEDS: busPIRone HCL 10 MG TABLET (FP) PO SCH ×3 (05:46→21:19)
[2022-04-12] MEDS: PRENATAL VITAMINS W/ FOLIC ACID TABLET (FP) PO SCH (09:39)
[2022-04-12] MEDS: MINERAL OIL/PETROLAT/WATER TOPICAL CREAM 113 GM JAR TP SCH ×2 (09:39→21:19)
[2022-04-12] MEDS: NICOTINE 7 MG/24 HOURS TOPICAL PATCH TD SCH (09:39)
[2022-04-12] MEDS: cloNIDine HCL 0.1 MG TABLET PO PRN (09:39)
[2022-04-12] MEDS: hydrOXYzine PAMOATE 50 MG CAPSULE (FP) PO PRN ×2 (13:48→21:20)
[2022-04-12] MEDS: THIAMINE HCL 100 MG TABLET (FP) PO SCH (21:19)
[2022-04-12] MEDS: QUEtiapine FUMARATE 100 MG TABLET (FP) PO SCH (21:19)
[2022-04-12] MEDS: TOLNAFTATE 1% CREAM 15 GM TUBE TP SCH (21:21)
[2022-04-13] MEDS: busPIRone HCL 10 MG TABLET (FP) PO SCH ×3 (06:03→21:19)
[2022-04-13] MEDS: hydrOXYzine PAMOATE 50 MG CAPSULE (FP) PO PRN ×3 (06:05→21:19)
[2022-04-13] MEDS: MINERAL OIL/PETROLAT/WATER TOPICAL CREAM 113 GM JAR TP SCH ×2 (09:57→21:20)
[2022-04-13] MEDS: NICOTINE 7 MG/24 HOURS TOPICAL PATCH TD SCH (09:57)
[2022-04-13] MEDS: NICOTINE 10 MG CARTRIDGE (INHALER) IH PRN (09:58)
[2022-04-13] MEDS: TOLNAFTATE 1% CREAM 15 GM TUBE TP SCH ×2 (09:58→21:19)
[2022-04-13] MEDS: PRENATAL VITAMINS W/ FOLIC ACID TABLET (FP) PO SCH (09:58)
[2022-04-13] MEDS: cloNIDine HCL 0.1 MG TABLET PO PRN (09:59)
[2022-04-13] MEDS: THIAMINE HCL 100 MG TABLET (FP) PO SCH (21:19)
[2022-04-13] MEDS: QUEtiapine FUMARATE 100 MG TABLET (FP) PO SCH (21:19)
[2022-04-14] MEDS: hydrOXYzine PAMOATE 50 MG CAPSULE (FP) PO PRN ×3 (05:48→21:30)
[2022-04-14] MEDS: busPIRone HCL 10 MG TABLET (FP) PO SCH ×3 (05:48→21:30)
[2022-04-14] MEDS: PRENATAL VITAMINS W/ FOLIC ACID TABLET (FP) PO SCH (10:29)
[2022-04-14] MEDS: TOLNAFTATE 1% CREAM 15 GM TUBE TP SCH ×2 (10:29→21:30)
[2022-04-14] MEDS: NICOTINE 7 MG/24 HOURS TOPICAL PATCH TD SCH (10:29)
[2022-04-14] MEDS: MINERAL OIL/PETROLAT/WATER TOPICAL CREAM 113 GM JAR TP SCH ×2 (10:30→21:31)
[2022-04-14] MEDS: cloNIDine HCL 0.1 MG TABLET PO PRN (10:31)
[2022-04-14] MEDS: QUEtiapine FUMARATE 100 MG TABLET (FP) PO SCH (21:30)
[2022-04-14] MEDS: THIAMINE HCL 100 MG TABLET (FP) PO SCH (21:30)
[2022-04-15] MEDS: busPIRone HCL 10 MG TABLET (FP) PO SCH ×3 (06:09→21:36)
[2022-04-15] MEDS: NICOTINE 7 MG/24 HOURS TOPICAL PATCH TD SCH (09:44)
[2022-04-15] MEDS: PRENATAL VITAMINS W/ FOLIC ACID TABLET (FP) PO SCH (09:44)
[2022-04-15] MEDS: hydrOXYzine PAMOATE 50 MG CAPSULE (FP) PO PRN ×2 (09:45→21:36)
[2022-04-15] MEDS: cloNIDine HCL 0.1 MG TABLET PO PRN (09:45)
[2022-04-15] MEDS: MINERAL OIL/PETROLAT/WATER TOPICAL CREAM 113 GM JAR TP SCH ×2 (09:46→21:37)
[2022-04-15] MEDS: NICOTINE 10 MG CARTRIDGE (INHALER) IH PRN (09:46)
[2022-04-15] MEDS: TOLNAFTATE 1% CREAM 15 GM TUBE TP SCH ×2 (09:47→21:37)
[2022-04-15] MEDS: QUEtiapine FUMARATE 100 MG TABLET (FP) PO SCH (21:36)
[2022-04-15] MEDS: THIAMINE HCL 100 MG TABLET (FP) PO SCH (21:37)
[2022-04-16] MEDS: busPIRone HCL 10 MG TABLET (FP) PO SCH ×3 (05:47→21:40)
[2022-04-16] MEDS: hydrOXYzine PAMOATE 50 MG CAPSULE (FP) PO PRN ×3 (05:49→21:40)
[2022-04-16] MEDS: MINERAL OIL/PETROLAT/WATER TOPICAL CREAM 113 GM JAR TP SCH ×2 (09:34→21:40)
[2022-04-16] MEDS: PRENATAL VITAMINS W/ FOLIC ACID TABLET (FP) PO SCH (09:34)
[2022-04-16] MEDS: NICOTINE 7 MG/24 HOURS TOPICAL PATCH TD SCH (09:34)
[2022-04-16] MEDS: cloNIDine HCL 0.1 MG TABLET PO PRN (09:35)
[2022-04-16] MEDS: TOLNAFTATE 1% CREAM 15 GM TUBE TP SCH ×2 (09:37→21:40)
[2022-04-16] MEDS: THIAMINE HCL 100 MG TABLET (FP) PO SCH (21:39)
[2022-04-16] MEDS: QUEtiapine FUMARATE 100 MG TABLET (FP) PO SCH (21:40)
[2022-04-17] MEDS: hydrOXYzine PAMOATE 50 MG CAPSULE (FP) PO PRN ×2 (05:53→21:49)
[2022-04-17] MEDS: busPIRone HCL 10 MG TABLET (FP) PO SCH ×3 (05:53→21:49)
[2022-04-17] MEDS: PRENATAL VITAMINS W/ FOLIC ACID TABLET (FP) PO SCH (09:27)
[2022-04-17] MEDS: MINERAL OIL/PETROLAT/WATER TOPICAL CREAM 113 GM JAR TP SCH ×2 (09:27→21:49)
[2022-04-17] MEDS: NICOTINE 7 MG/24 HOURS TOPICAL PATCH TD SCH (09:27)
[2022-04-17] MEDS: cloNIDine HCL 0.1 MG TABLET PO PRN (09:27)
[2022-04-17] MEDS: TOLNAFTATE 1% CREAM 15 GM TUBE TP SCH ×2 (09:28→21:50)
[2022-04-17] MEDS: QUEtiapine FUMARATE 100 MG TABLET (FP) PO SCH (21:49)
[2022-04-17] MEDS: THIAMINE HCL 100 MG TABLET (FP) PO SCH (21:50)
[2022-04-18] MEDS: busPIRone HCL 10 MG TABLET (FP) PO SCH ×3 (05:53→21:27)
[2022-04-18] MEDS: hydrOXYzine PAMOATE 50 MG CAPSULE (FP) PO PRN ×2 (05:55→21:27)
[2022-04-18] MEDS: NICOTINE 7 MG/24 HOURS TOPICAL PATCH TD SCH (09:37)
[2022-04-18] MEDS: MINERAL OIL/PETROLAT/WATER TOPICAL CREAM 113 GM JAR TP SCH ×2 (09:37→21:28)
[2022-04-18] MEDS: TOLNAFTATE 1% CREAM 15 GM TUBE TP SCH ×2 (09:37→21:28)
[2022-04-18] MEDS: PRENATAL VITAMINS W/ FOLIC ACID TABLET (FP) PO SCH (09:38)
[2022-04-18] MEDS: cloNIDine HCL 0.1 MG TABLET PO PRN (09:38)
[2022-04-18] MEDS: QUEtiapine FUMARATE 100 MG TABLET (FP) PO SCH (21:27)
[2022-04-18] MEDS: THIAMINE HCL 100 MG TABLET (FP) PO SCH (21:28)
[2022-04-19] MEDS: hydrOXYzine PAMOATE 50 MG CAPSULE (FP) PO PRN ×2 (05:59→21:13)
[2022-04-19] MEDS: busPIRone HCL 10 MG TABLET (FP) PO SCH ×3 (05:59→21:13)
[2022-04-19] MEDS: PRENATAL VITAMINS W/ FOLIC ACID TABLET (FP) PO SCH (09:49)
[2022-04-19] MEDS: MINERAL OIL/PETROLAT/WATER TOPICAL CREAM 113 GM JAR TP SCH ×2 (09:49→21:13)
[2022-04-19] MEDS: NICOTINE 7 MG/24 HOURS TOPICAL PATCH TD SCH (09:49)
[2022-04-19] MEDS: TOLNAFTATE 1% CREAM 15 GM TUBE TP SCH ×2 (09:50→21:13)
[2022-04-19] MEDS: cloNIDine HCL 0.1 MG TABLET PO PRN (09:50)
[2022-04-19] MEDS: NICOTINE 10 MG CARTRIDGE (INHALER) IH PRN (21:13)
[2022-04-19] MEDS: QUEtiapine FUMARATE 100 MG TABLET (FP) PO SCH (21:13)
[2022-04-19] MEDS: THIAMINE HCL 100 MG TABLET (FP) PO SCH (21:14)
[2022-04-20] MEDS: busPIRone HCL 10 MG TABLET (FP) PO SCH ×3 (06:06→21:30)
[2022-04-20] MEDS: hydrOXYzine PAMOATE 50 MG CAPSULE (FP) PO PRN ×2 (06:06→21:30)
[2022-04-20] MEDS: NICOTINE 10 MG CARTRIDGE (INHALER) IH PRN (09:38)
[2022-04-20] MEDS: NICOTINE 7 MG/24 HOURS TOPICAL PATCH TD SCH (09:39)
[2022-04-20] MEDS: MINERAL OIL/PETROLAT/WATER TOPICAL CREAM 113 GM JAR TP SCH ×2 (09:39→21:32)
[2022-04-20] MEDS: cloNIDine HCL 0.1 MG TABLET PO PRN (09:39)
[2022-04-20] MEDS: TOLNAFTATE 1% CREAM 15 GM TUBE TP SCH ×2 (09:39→21:32)
[2022-04-20] MEDS: PRENATAL VITAMINS W/ FOLIC ACID TABLET (FP) PO SCH (09:39)
[2022-04-20] MEDS: QUEtiapine FUMARATE 100 MG TABLET (FP) PO SCH (21:30)
[2022-04-20] MEDS: THIAMINE HCL 100 MG TABLET (FP) PO SCH (21:31)
[2022-04-21] MEDS: hydrOXYzine PAMOATE 50 MG CAPSULE (FP) PO PRN (06:27)
[2022-04-21] MEDS: busPIRone HCL 10 MG TABLET (FP) PO SCH (06:27)
[2022-04-21 08:49] VITALS: BP 137/81; PULSE 77; RESP 20; TEMP 97.3
[2022-04-21] MEDS: TOLNAFTATE 1% CREAM 15 GM TUBE TP SCH (10:08)
[2022-04-21] MEDS: MINERAL OIL/PETROLAT/WATER TOPICAL CREAM 113 GM JAR TP SCH (10:08)
[2022-04-21] MEDS: NICOTINE 7 MG/24 HOURS TOPICAL PATCH TD SCH (10:08)
[2022-04-21] MEDS: PRENATAL VITAMINS W/ FOLIC ACID TABLET (FP) PO SCH (10:08)
[2022-04-21] MEDS: cloNIDine HCL 0.1 MG TABLET PO PRN (10:17)
== END 2022-04-21 11:11 | disposition home or self-care (01) | DRG 772 ==
LOC: YASAS 11:24 → Y3W 15:44
PROVIDERS: ADMIT Allergy & Immunology; ATTEND Psychiatry & Neurology Pain Medicine
PROC: HZ42ZZZ Group Counseling for Substance Abuse Treatment, Cognitive-Behavioral (ICD-10-PCS; principal; 2022-04-03)
DX: F11.20 Opioid dependence, uncomplicated (principal); F14.20 Cocaine dependence, uncomplicated; F13.20 Sedative, hypnotic or anxiolytic dependence, uncomplicated; F17.210 Nicotine dependence, cigarettes, uncomplicated; F19.282 Other psychoactive substance dependence with psychoactive substance-induced sleep disorder; F19.280 Other psychoactive substance dependence with psychoactive substance-induced anxiety disorder; F19.24 Other psychoactive substance dependence with psychoactive substance-induced mood disorder; F41.9 Anxiety disorder, unspecified; F32.A Depression, unspecified; K21.9 Gastro-esophageal reflux disease without esophagitis; L85.3 Xerosis cutis; B35.1 Tinea unguium; Z20.822 Contact with and (suspected) exposure to COVID-19; Z62.810 Personal history of physical and sexual abuse in childhood; Z56.0 Unemployment, unspecified; Z59.01 Sheltered homelessness
CPT/HCPCS: 36415; 80053; 81003; 85027; 86780; 86803; C9803-CS; U0003; U0005

== ENCOUNTER 2022-10-31 13:26 | Inpatient (IN) | payer OTHER ==
[2022-10-31 13:59] VITALS: BMI 27.5
[2022-10-31] MEDS ORDERED: BENZOCAINE/MENTHOL (CHLORASEPTIC ) LOZENGE MM PRN (15:35)
[2022-10-31] MEDS ORDERED: IBUPROFEN 600 MG TABLET (FP) PO PRN (15:35)
[2022-10-31] MEDS ORDERED: AMMONIUM LACTATE 12% LOTION 225 GM BOTTLE TP PRN (15:35)
[2022-10-31] MEDS ORDERED: NALOXONE HCL 0.4 MG/ML VIAL IM PRN (15:35)
[2022-10-31] MEDS ORDERED: MAG HYDROX/AL HYDROX/SIMETH 30 ML UNIT-DOSE CUP PO PRN (15:35)
[2022-10-31] MEDS ORDERED: ACETAMINOPHEN 325 MG TABLET (FP) PO PRN (15:35)
[2022-10-31] MEDS ORDERED: IBUPROFEN 400 MG TABLET (FP) PO PRN (15:35)
[2022-10-31] MEDS ORDERED: POLYETHYLENE GLYCOL (HEALTHYLAX) 3350 17 GM PACKET PO PRN (15:35)
[2022-10-31] MEDS ORDERED: MAGNESIUM HYDROX 2400MG/30ML ORAL SUSPENSION 30 ML CUP PO PRN (15:35)
[2022-10-31] MEDS ORDERED: guaiFENesin 600 MG TABLET.ER (FP) PO PRN (15:35)
[2022-10-31] MEDS ORDERED: COLLOIDAL OATMEAL 1 BAR EACH TP PRN (15:35)
[2022-10-31] MEDS ORDERED: BENZONATATE 200 MG CAPSULE PO PRN (15:35)
[2022-10-31] MEDS ORDERED: LOPERAMIDE HCL 2 MG CAPSULE PO PRN (15:35)
[2022-10-31] MEDS ORDERED: NALOXONE HCL (KLOXXADO) 8 MG SPRAY NS PRN (15:35)
[2022-10-31] MEDS ORDERED: methaDONE HCL 10 MG TABLET PO ONE ×2 (15:38→19:30)
[2022-10-31] MEDS ORDERED: PRENATAL VITAMINS W/ FOLIC ACID TABLET (FP) PO SCH (15:45)
[2022-10-31] MEDS ORDERED: TUBERCULIN PPD 5 TU/0.1ML VIAL ID ONE (19:47)
[2022-10-31] MEDS: PRENATAL VITAMINS W/ FOLIC ACID TABLET (FP) PO SCH (19:48)
[2022-10-31] MEDS: THIAMINE HCL 100 MG TABLET (FP) PO SCH (21:02)
[2022-10-31] MEDS: hydrOXYzine PAMOATE 25 MG CAPSULE (FP) PO PRN (21:03)
[2022-10-31] MEDS ORDERED: MELATONIN 5 MG TABLETS PO SCH (22:00)
[2022-10-31] MEDS: BACITRACIN ZINC 15 GM TUBE TOPICAL OINTMENT TP SCH (22:50)
[2022-11-01] MEDS ORDERED: methaDONE HCL 10 MG TABLET PO SCH (09:30)
[2022-11-01] MEDS: NICOTINE 21 MG/24 HOURS TOPICAL PATCH TD SCH (09:44)
[2022-11-01] MEDS: BACITRACIN ZINC 15 GM TUBE TOPICAL OINTMENT TP SCH (09:44)
[2022-11-01] MEDS: PRENATAL VITAMINS W/ FOLIC ACID TABLET (FP) PO SCH (09:44)
[2022-11-01] MEDS: methaDONE 40 MG, methaDONE 10 MG PO SCH (09:45)
[2022-11-01 11:58] LABS: HEMATOCRIT 36.2 % (35.4-49); HEMOGLOBIN 11.7 GM/dL (11.7-16.9); MCH 27.7 pg (25.7-33.7); MCHC 32.4 g/dl (32.0-35.9); MEAN CELL VOLUME 85.7 fl (80-96); MEAN PLT VOLUME 10.6 fl (7.5-11.1); PLATELET COUNT 194 10^3/uL (134-434); RBC 4.23 M/mm3 (4.00-5.60); WHITE BLOOD COUNT 6.1 K/mm3 (4.0-10.0)
[2022-11-01 12:01] LABS: CHLORIDE 107 mmol/L (98-107); POTASSIUM 3.9 mmol/L (3.5-5.1); SODIUM 140 mmol/L (136-145)
[2022-11-01 12:04] LABS: URINE APPEARANCE CLEAR; URINE BILIRUBIN NEGATIVE (NEGATIVE); URINE COLOR YELLOW; URINE GLUCOSE (UA) NEGATIVE (NEGATIVE); URINE KETONE NEGATIVE (NEGATIVE); URINE LEUK ESTERASE NEGATIVE (NEGATIVE); URINE NITRITE NEGATIVE (NEGATIVE); URINE PROTEIN NEGATIVE (NEGATIVE); URINE UROBILINOGEN 0.2 mg/dL (0.2-1.0)
[2022-11-01 12:30] LABS: SYPHILIS W/ RPR CONF NON-REACTIVE (NONREACTIVE)
[2022-11-01] MEDS: hydrOXYzine PAMOATE 25 MG CAPSULE (FP) PO PRN ×2 (12:32→21:19)
[2022-11-01 12:47] LABS: CALCIUM 8.5 mg/dL (8.5-10.1)
[2022-11-01 12:48] LABS: ANION GAP 6 MMOL/L (8-16); CO2 28 mmol/L (21-32)
[2022-11-01 12:49] LABS: BLOOD UREA NITROGEN 15.1 mg/dL (7-18); GLUCOSE,RANDOM 123 mg/dL (74-106)
[2022-11-01 12:53] LABS: CREATININE 0.9 mg/dL (0.55-1.3); SGPT/ALT 30 U/L (13-61)
[2022-11-01 12:54] LABS: ALK PHOS 131 U/L (45-117); SGOT/AST 18 U/L (15-37); TOT PROT 6.6 g/dl (6.4-8.2)
[2022-11-01 12:55] LABS: BILIRUBIN,TOTAL < 0.1 mg/dL (0.2-1)
[2022-11-01] MEDS: GABAPENTIN 100 MG CAPSULE PO SCH ×2 (14:35→21:19)
[2022-11-01] MEDS: QUEtiapine FUMARATE 50 MG TABLET PO SCH (21:18)
[2022-11-01] MEDS: THIAMINE HCL 100 MG TABLET (FP) PO SCH (21:19)
[2022-11-01] MEDS: BACITRACIN 0.9 GM PACKET TP SCH (21:19)
[2022-11-02] MEDS: methaDONE 40 MG, methaDONE 10 MG PO SCH (05:57)
[2022-11-02] MEDS: GABAPENTIN 100 MG CAPSULE PO SCH ×3 (05:58→21:04)
[2022-11-02] MEDS: hydrOXYzine PAMOATE 25 MG CAPSULE (FP) PO PRN ×3 (05:59→21:05)
[2022-11-02 07:01] VITALS: RESP 18
[2022-11-02] MEDS: BACITRACIN 0.9 GM PACKET TP SCH ×2 (10:06→21:04)
[2022-11-02] MEDS: PRENATAL VITAMINS W/ FOLIC ACID TABLET (FP) PO SCH ×2 (10:06→10:08)
[2022-11-02] MEDS: NICOTINE 21 MG/24 HOURS TOPICAL PATCH TD SCH (10:06)
[2022-11-02] MEDS: THIAMINE HCL 100 MG TABLET (FP) PO SCH (21:04)
[2022-11-02] MEDS: QUEtiapine FUMARATE 50 MG TABLET PO SCH (21:04)
[2022-11-03] MEDS: hydrOXYzine PAMOATE 25 MG CAPSULE (FP) PO PRN (05:53)
[2022-11-03] MEDS: methaDONE 40 MG, methaDONE 10 MG PO SCH (05:53)
[2022-11-03] MEDS: GABAPENTIN 100 MG CAPSULE PO SCH (05:53)
[2022-11-03 07:09] VITALS: BP 131/86; PULSE 67; TEMP 97.1
[2022-11-03] MEDS: NICOTINE 21 MG/24 HOURS TOPICAL PATCH TD SCH (09:48)
[2022-11-03] MEDS: PRENATAL VITAMINS W/ FOLIC ACID TABLET (FP) PO SCH (09:48)
[2022-11-03] MEDS: BACITRACIN 0.9 GM PACKET TP SCH (09:48)
== END 2022-11-03 12:20 | disposition left against medical advice (07) | DRG 770 ==
LOC: YASAS 13:26 → Y3W 16:39
PROVIDERS: ADMIT Allergy & Immunology; ATTEND Psychiatry & Neurology Pain Medicine
PROC: HZ42ZZZ Group Counseling for Substance Abuse Treatment, Cognitive-Behavioral (ICD-10-PCS; principal; 2022-10-31)
DX: F11.20 Opioid dependence, uncomplicated (principal); F14.20 Cocaine dependence, uncomplicated; F13.20 Sedative, hypnotic or anxiolytic dependence, uncomplicated; F12.20 Cannabis dependence, uncomplicated; F17.210 Nicotine dependence, cigarettes, uncomplicated; F19.282 Other psychoactive substance dependence with psychoactive substance-induced sleep disorder; F19.280 Other psychoactive substance dependence with psychoactive substance-induced anxiety disorder; F19.24 Other psychoactive substance dependence with psychoactive substance-induced mood disorder; F41.9 Anxiety disorder, unspecified; F32.9 Major depressive disorder, single episode, unspecified; I10 Essential (primary) hypertension; K21.9 Gastro-esophageal reflux disease without esophagitis; Z59.02 Unsheltered homelessness; Z56.0 Unemployment, unspecified
CPT/HCPCS: 36415; 80053; 81003; 85027; 86780; 86803; 87635

== ENCOUNTER 2023-12-13 12:22 | Inpatient (IN) | payer OTHER ==
[2023-12-13 14:18] VITALS: BMI 28.8
[2023-12-13] MEDS ORDERED: MAG HYDROX/AL HYDROX/SIMETH 30 ML UNIT-DOSE CUP PO PRN (14:56)
[2023-12-13] MEDS ORDERED: LOPERAMIDE HCL 2 MG CAPSULE PO PRN (14:56)
[2023-12-13] MEDS ORDERED: guaiFENesin 600 MG TABLET.ER (FP) PO PRN (14:56)
[2023-12-13] MEDS ORDERED: BENZONATATE 200 MG CAPSULE PO PRN (14:56)
[2023-12-13] MEDS ORDERED: NALOXONE (NARCAN) HCL 4 MG/0.1 ML SPRAY NS PRN (14:56)
[2023-12-13] MEDS ORDERED: NALOXONE HCL 0.4 MG/ML VIAL IM PRN (14:56)
[2023-12-13] MEDS ORDERED: POLYETHYLENE GLYCOL (HEALTHYLAX) 3350 17 GM PACKET PO PRN (14:56)
[2023-12-13] MEDS ORDERED: BISMUTH SUBSALICYLATE 262 MG/15 ML BTL PO PRN (14:56)
[2023-12-13] MEDS ORDERED: DICYCLOMINE HCL 10 MG CAPSULE PO PRN (14:56)
[2023-12-13] MEDS ORDERED: ONDANSETRON *ODT* 4 MG TABLET SL PRN (14:56)
[2023-12-13] MEDS ORDERED: ACETAMINOPHEN 325 MG TABLET (FP) PO PRN (14:56)
[2023-12-13] MEDS ORDERED: BENZOCAINE/MENTHOL (CHLORASEPTIC ) LOZENGE MM PRN (14:56)
[2023-12-13] MEDS: PRENATAL VITAMINS W/ FOLIC ACID TABLET (FP) PO SCH (15:59)
[2023-12-13] MEDS: NICOTINE 14 MG/24 HOURS TOPICAL PATCH TD SCH (15:59)
[2023-12-13] MEDS: NICOTINE POLACRILEX 4 MG GUM BUC PRN (17:33)
[2023-12-13] MEDS: IBUPROFEN 600 MG TABLET (FP) PO PRN (17:35)
[2023-12-13] MEDS: hydrOXYzine PAMOATE 25 MG CAPSULE (FP) PO PRN (17:35)
[2023-12-13] MEDS: MELATONIN 5 MG TABLETS PO SCH (21:40)
[2023-12-13] MEDS: METHOCARBAMOL 500 MG TABLET PO PRN (21:42)
[2023-12-13] MEDS: THIAMINE 100 MG TABLET PO SCH (21:42)
[2023-12-13] MEDS: NICOTINE POLACRILEX 2 MG LOZENGE BC PRN (21:43)
[2023-12-14] MEDS: MELATONIN 5 MG TABLETS PO ONE (01:34)
[2023-12-14] MEDS: IBUPROFEN 400 MG TABLET (FP) PO PRN ×2 (01:37→13:51)
[2023-12-14] MEDS ORDERED: methaDONE HCL 10 MG TABLET PO ONE (06:00)
[2023-12-14] MEDS ORDERED: ACETAMINOPHEN 325 MG TABLET (FP) PO PRN (09:08)
[2023-12-14 14:34] LABS: POTASSIUM 3.8 mmol/L (3.5-5.1)
[2023-12-14 14:35] LABS: HEMATOCRIT 31.8 % (35.4-49); HEMOGLOBIN 10.9 GM/dL (11.7-16.9); MCHC 34.2 g/dl (32.0-35.9); MEAN CELL VOLUME 84.7 fl (80-96); MEAN PLT VOLUME 10.6 fl (7.5-11.1); PLATELET COUNT 173 10^3/uL (134-434); RBC 3.76 M/mm3 (4.00-5.60); WHITE BLOOD COUNT 5.1 K/mm3 (4.0-10.0)
[2023-12-14 14:39] LABS: CALCIUM 8.8 mg/dL (8.5-10.1)
[2023-12-14 14:40] LABS: BLOOD UREA NITROGEN 18.6 mg/dL (7-18)
[2023-12-14 14:43] LABS: CREATININE 0.8 mg/dL (0.55-1.3)
[2023-12-14 14:45] LABS: BILIRUBIN,TOTAL 0.4 mg/dL (0.2-1); TOT PROT 6.5 g/dl (6.4-8.2)
[2023-12-14] MEDS: hydrOXYzine PAMOATE 25 MG CAPSULE (FP) PO ONE (18:35)
[2023-12-14] MEDS: QUEtiapine FUMARATE 100 MG TABLET (FP) PO SCH (22:04)
[2023-12-15] MEDS ORDERED: methaDONE HCL 10 MG TABLET PO ONE (06:00)
[2023-12-15] MEDS: hydrOXYzine PAMOATE 25 MG CAPSULE (FP) PO PRN (11:03)
[2023-12-15] MEDS: MAGNESIUM HYDROX 2400MG/30ML ORAL SUSPENSION 30 ML CUP PO PRN (22:04)
[2023-12-16] MEDS ORDERED: methaDONE HCL 10 MG TABLET PO SCH (08:30)
[2023-12-16] MEDS: cloNIDine HCL 0.1 MG TABLET PO PRN (10:49)
[2023-12-18 08:56] VITALS: BP 104/72; PULSE 66; RESP 18; TEMP 97.7
== END 2023-12-18 09:40 | disposition home or self-care (01) | DRG 773 ==
LOC: YASAS 12:22 → Y6N 15:18
PROVIDERS: ADMIT Allergy & Immunology; ATTEND Family Medicine Addiction Medicine
PROC: HZ2ZZZZ Detoxification Services for Substance Abuse Treatment (ICD-10-PCS; principal; 2023-12-13)
DX: F11.23 Opioid dependence with withdrawal (principal); F14.20 Cocaine dependence, uncomplicated; F12.20 Cannabis dependence, uncomplicated; F17.210 Nicotine dependence, cigarettes, uncomplicated; F19.282 Other psychoactive substance dependence with psychoactive substance-induced sleep disorder; F19.24 Other psychoactive substance dependence with psychoactive substance-induced mood disorder; F41.9 Anxiety disorder, unspecified; F32.A Depression, unspecified; I10 Essential (primary) hypertension; K21.9 Gastro-esophageal reflux disease without esophagitis; Z62.810 Personal history of physical and sexual abuse in childhood; S92.302D Fracture of unspecified metatarsal bone(s), left foot, subsequent encounter for fracture with routine healing; X58.XXXD Exposure to other specified factors, subsequent encounter
CPT/HCPCS: 36415; 80053; 80305; 85027; 86780; 93005; 93010

== ENCOUNTER 2024-06-16 15:45 | Inpatient (IN) | payer OTHER ==
[2024-06-16 16:28] VITALS: BMI 25.8
[2024-06-16] MEDS ORDERED: BENZOCAINE/MENTHOL (CHLORASEPTIC ) LOZENGE MM PRN (17:03)
[2024-06-16] MEDS ORDERED: ONDANSETRON *ODT* 4 MG TABLET SL PRN (17:03)
[2024-06-16] MEDS ORDERED: ACETAMINOPHEN 325 MG TABLET (FP) PO PRN (17:03)
[2024-06-16] MEDS ORDERED: MAG HYDROX/AL HYDROX/SIMETH 30 ML UNIT-DOSE CUP PO PRN (17:03)
[2024-06-16] MEDS ORDERED: IBUPROFEN 400 MG TABLET (FP) PO PRN (17:03)
[2024-06-16] MEDS ORDERED: guaiFENesin 600 MG TABLET.ER (FP) PO PRN (17:03)
[2024-06-16] MEDS ORDERED: BISMUTH SUBSALICYLATE 524 MG/30 ML PO PRN (17:03)
[2024-06-16] MEDS ORDERED: IBUPROFEN 600 MG TABLET (FP) PO PRN (17:03)
[2024-06-16] MEDS ORDERED: POLYETHYLENE GLYCOL (HEALTHYLAX) 3350 17 GM PACKET PO PRN (17:03)
[2024-06-16] MEDS ORDERED: DICYCLOMINE HCL 10 MG CAPSULE PO PRN (17:03)
[2024-06-16] MEDS ORDERED: MAGNESIUM HYDROX 2400MG/30ML ORAL SUSPENSION 30 ML CUP PO PRN (17:03)
[2024-06-16] MEDS ORDERED: LORazepam 1 MG TABLET PO PRN (17:03)
[2024-06-16] MEDS ORDERED: BENZONATATE 200 MG CAPSULE PO PRN (17:03)
[2024-06-16] MEDS ORDERED: NALOXONE (NARCAN) HCL 4 MG/0.1 ML SPRAY NS PRN (17:03)
[2024-06-16] MEDS ORDERED: LOPERAMIDE HCL 2 MG CAPSULE PO PRN (17:03)
[2024-06-16] MEDS: MELATONIN 5 MG TABLETS PO SCH (22:23)
[2024-06-16] MEDS: THIAMINE 100 MG TABLET PO SCH (22:23)
[2024-06-16] MEDS: LORazepam 2 MG TABLET PO SCH (22:23)
[2024-06-16] MEDS: NICOTINE POLACRILEX 2 MG GUM BUC PRN (22:38)
[2024-06-17] MEDS: methaDONE HCL 40 MG DISPERSABLE TABLET PO SCH (09:17)
[2024-06-17] MEDS: PRENATAL VITAMINS W/ FOLIC ACID TABLET (FP) PO SCH (10:07)
[2024-06-17] MEDS: hydrOXYzine PAMOATE 25 MG CAPSULE (FP) PO PRN (10:07)
[2024-06-17] MEDS: METHOCARBAMOL 500 MG TABLET PO PRN (10:07)
[2024-06-17] MEDS: NICOTINE 14 MG/24 HOURS TOPICAL PATCH TD SCH (10:08)
[2024-06-17 11:18] LABS: HEMATOCRIT 35.9 % (35.4-49); HEMOGLOBIN 11.9 GM/dL (11.7-16.9); MCH 27.6 pg (25.7-33.7); MEAN CELL VOLUME 83.6 fl (80-96); PLATELET COUNT 199 10^3/uL (134-434); RDW 15.4 % (11.9-15.9); WHITE BLOOD COUNT 6.2 K/mm3 (4.0-10.0)
[2024-06-17 11:20] LABS: CHLORIDE 104 mmol/L (98-107); POTASSIUM 3.8 mmol/L (3.5-5.1); SODIUM 139 mmol/L (136-145)
[2024-06-17 11:38] LABS: ALBUMIN 3.3 g/dl (3.4-5.0); ANION GAP 4 mmol/L (4-13); BLOOD UREA NITROGEN 23.5 mg/dL (7-18); CO2 30 mmol/L (21-32); GLUCOSE,RANDOM 118 mg/dL (74-106)
[2024-06-17 11:41] LABS: CREATININE 0.9 mg/dL (0.55-1.3); SGPT/ALT 24 U/L (13-61)
[2024-06-17 11:42] LABS: BILIRUBIN,TOTAL 0.5 mg/dL (0.2-1); SGOT/AST 15 U/L (15-37); TOT PROT 6.9 g/dl (6.4-8.2)
[2024-06-17 11:44] LABS: ALK PHOS 164 U/L (45-117)
[2024-06-17] MEDS: QUEtiapine FUMARATE 100 MG TABLET (FP) PO SCH (22:17)
[2024-06-18] MEDS: LORazepam 1 MG TABLET PO SCH (05:03)
[2024-06-19] MEDS: LORazepam 0.5 MG TABLET PO SCH (05:27)
[2024-06-19] MEDS: LORazepam 0.5 MG TABLET PO PRN (13:07)
[2024-06-20] MEDS: LORazepam 0.5 MG TABLET PO ONE (05:30)
[2024-06-20 09:36] VITALS: BP 120/74; PULSE 69; RESP 16; TEMP 97.8
== END 2024-06-20 11:45 | disposition other institution (70) | DRG 773 ==
LOC: YASAS 15:45 → Y3N 19:18
PROVIDERS: ADMIT Allergy & Immunology; ATTEND Allergy & Immunology
PROC: HZ2ZZZZ Detoxification Services for Substance Abuse Treatment (ICD-10-PCS; principal; 2024-06-16)
DX: F13.230 Sedative, hypnotic or anxiolytic dependence with withdrawal, uncomplicated (principal); F11.20 Opioid dependence, uncomplicated; F14.20 Cocaine dependence, uncomplicated; F17.210 Nicotine dependence, cigarettes, uncomplicated; F19.24 Other psychoactive substance dependence with psychoactive substance-induced mood disorder; F41.9 Anxiety disorder, unspecified; F32.9 Major depressive disorder, single episode, unspecified; I10 Essential (primary) hypertension; K21.9 Gastro-esophageal reflux disease without esophagitis; Z59.00 Homelessness unspecified
CPT/HCPCS: 36415; 80053; 80305; 80307; 85027; 86780; 87811; 93005; 93010